=== PATIENT | male | born 1965 | race Caucasian/White ===

== ENCOUNTER 2019-09-23 11:07 | Inpatient (IN) | payer SELFPAY ==
[2019-09-23] VITALS (32 sets, daily range): BP systolic 82–181; BP diastolic 54–111; PULSE 64–114; RESP 12–23; O2SAT 87–100; BMI 44.8
--- NOTE | 2019-09-23 11:08 | ED_ITS ---
Entered by Nola Garcia, acting as scribe for Aryan Camacho DO HPI - Altered Mental Status General: Chief Complaint: Altered Mental Status Stated Complaint: unresponsive Time Seen by Provider: 09/23/19 11:08 Source: EMS and RN notes reviewed Mode of arrival: EMS Limitations: altered mental status History of Present Illness: HPI narrative: 54 yo male presents to ED with an altered mental status. Per EMS report, the patient was found in alley leaning up against a car and holding a Dorsey fontenot in his L hand, shivering uncontrollably with divorce papers in his other hand. After EMS placed the patient in the ambulance he became unresponsive. The patient is not responding to verbal commands nor sternal rub; his eyes are reactive. Intubated at 1110. MD complaint: altered mental status and decreased responsiveness Onset (ago): hour(s) (today) Timing confirmed by: other (EMS) Severity: severe Consistency of symptoms: Constant Context: unknown Associated symptoms: Reports other (unresponsive) Review of Systems General: Reports: ROS unobtainable due to endotracheal tube, ROS unobtainable due to medical condition and ROS unobtainable due to mental status [facility] ED PFSH: Social History Smoking and tobacco status: unknown if ever smoked Physical Exam Narrative: EXAM NARRATIVE: Patient is unresponsive. EMS reports he was found by police leaning up against the car in an alley. There is no evidence of trauma. Patient is either unable or unwilling to speak and does not appear to be awake or alert. Const: EXAM LIMITATIONS: altered mental status NUTRITIONAL APPEARANCE: cachectic ORIENTATION/CONSCIOUSNESS: Yes obtunded Neck/C-Spine: COMMON NORMALS: no JVD Resp: COMMON NORMALS: normal respiratory effort EFFORT & INSPECTION: Yes decreased respiratory effort Cardio: COMMON NORMALS: no JVD and regular rate RATE: regular rate GI: COMMON NORMALS: normal to inspection, nondistended, normoactive bowel sounds Extremity: COMMON NORMALS: normal to inspection and normal capillary refill Neuro: ADAMS COMA SCALE: document GCS findings Skin: COMMON NORMALS: no rashes or lesions noted, no wounds and no jaundice GENERAL SKIN EXAM: no rashes or lesions noted Procedures Lumbar Puncture Time Out Performed: No Patient Position: left lateral decubitus Skin Prep: Povidone-Iodine 1% Spinal Needle Gauge: 20G Interspace Used: L4-L5 Fluid Initially Obtained: clear Complications: none Course Vital Signs: Vital signs: Vital Signs Pulse Rate 67 09/23/19 14:00 Respiratory Rate 16 09/23/19 14:45 Blood Pressure 118/81 09/23/19 14:00 Pulse Oximetry 94 09/23/19 14:00 MDM - Altered Mental Status Lab Data: Labs: Lab Results 09/23/19 09/23/19 09/23/19 Range/Units 11:20 11:20 11:20 WBC 7.7 (4.0-10.0) 10^3/ uL RBC 4.74 (4.1-5.3) 10^6/u L Hgb 15.4 (11.7-16.6) g/dL Hct 45.1 (42.0-52.0) % MCV 95.1 H (80-94) fL MCH 32.5 (28.0-34.0) pg MCHC 34.1 (30.0-36.0) g/dL RDW 12.8 (12.1-15.1) % Plt Count 191 (130-400) 10^3/c mm MPV 9.8 (7.4-10.4) fL Neut % (Auto) 77.8 % Lymph % (Auto) 16.4 % Geary % (Auto) 4.7 % Eos % (Auto) 0.4 % Baso % (Auto) 0.4 % Neut # (Auto) 6.0 (1.8-7.7) 10^3/u L Lymph # (Auto) 1.3 (0.8-4.8) 10^3/u L Geary # (Auto) 0.4 (0.2-0.9) 10^3/u L Eos # (Auto) 0.0 (0.0-0.8) 10^3/u L Baso # (Auto) 0.0 (0.0-0.1) 10^3/u L Nucleated RBC % (a uto) 0 % Nucleated RBCs # 0.0 /100WBC PT (10.5-13.3) SECO NDS INR (0.8-1.2) APTT (23.9-36.7) SECO NDS Specimen Type Sample Site ABG pH (7.35-7.45) ABG pCO2 (35-45) mmHg ABG pO2 (80.0-100.0) mmH g ABG HCO3 (22-26) mmol/L ABG Base Excess (-2.0-2.0) mmol/ L Harrison Test Hematocrit (42-52) % Respiration Rate % O2 Delivery Device FiO2 % Tidal Volume PEEP cmH20 Ruling Machine Operator ID Sodium 134 L (136-145) mmol/L Potassium 4.3 (3.5-5.1) mmol/L Chloride 98 (98-107) mmol/L Carbon Dioxide 24 (22-29) mmol/L Anion Gap 16.3 (5-19) BUN 14 (6-20) mg/dL Creatinine 1.1 (0.7-1.2) mg/dL GFR Calculation 69.5 L (90-130) mL/min Glucose 127 H (65-115) mg/dL Calcium 10.1 (8.5-10.5) mg/dL Total Bilirubin 0.5 (0.15-1.2) mg/dL AST 28 (0-40) U/L ALT 36 (0-41) U/L Alkaline Phosphata se 86 (40-130) IU/L Troponin T Baselin e 9 (0-15) ng/mL Troponin T 120 Min shoshone[place]bann[place] (0-15) ng/mL Delta Troponin T (0-10) ABS# Total Protein 7.8 (6.6-8.7) g/dL Albumin 4.8 (3.5-5.2) g/dL Globulin 3.0 (1.3-4.6) g/dL TSH 0.38 (0.27-4.20) uIU/ mL Urine Color (Yellow) Urine Appearance (CLEAR) Urine pH (5-7) Ur Specific Gravit y (1.005-1.030) Urine Protein (Negative) Urine Glucose (UA) (Normal) Urine Ketones (Negative) Urine Occult Blood (Negative) Urine Nitrate (Negative) Urine Bilirubin (NEGATIVE) Urine Urobilinogen (Negative) mg/dL Ur Leukocyte Talia ase (Negative) Salicylates < 0.3 L (3-10) mg/dL Urine Opiates Scre en (Negative) ng/mL Acetaminophen < 5.0 L (10-30) ug/mL Ur Barbiturates Sc reen (Negative) ng/mL Ur Phencyclidine S crn (Negative) ng/mL Ur Amphetamines Sc reen (Negative) ng/mL U Benzodiazepines Scrn (Negative) ng/mL Urine Cocaine Scre en (Negative) ng/mL U Marijuana (THC) Screen (Negative) ng/mL Ethyl Alcohol < 10 (0-10) mg/dL 09/23/19 09/23/19 09/23/19 Range/Units 11:20 11:40 11:40 WBC (4.0-10.0) 10^3/ uL RBC (4.1-5.3) 10^6/u L Hgb (11.7-16.6) g/dL Hct (42.0-52.0) % MCV (80-94) fL MCH (28.0-34.0) pg MCHC (30.0-36.0) g/dL RDW (12.1-15.1) % Plt Count (130-400) 10^3/c mm MPV (7.4-10.4) fL Neut % (Auto) % Lymph % (Auto) % Geary % (Auto) % Eos % (Auto) % Baso % (Auto) % Neut # (Auto) (1.8-7.7) 10^3/u L Lymph # (Auto) (0.8-4.8) 10^3/u L Geary # (Auto) (0.2-0.9) 10^3/u L Eos # (Auto) (0.0-0.8) 10^3/u L Baso # (Auto) (0.0-0.1) 10^3/u L Nucleated RBC % (a uto) % Nucleated RBCs # /100WBC PT 14.00 H (10.5-13.3) SECO NDS INR 1.04 (0.8-1.2) APTT 28.4 (23.9-36.7) SECO NDS Specimen Type Sample Site ABG pH (7.35-7.45) ABG pCO2 (35-45) mmHg ABG pO2 (80.0-100.0) mmH g ABG HCO3 (22-26) mmol/L ABG Base Excess (-2.0-2.0) mmol/ L Harrison Test Hematocrit (42-52) % Respiration Rate % O2 Delivery Device FiO2 % Tidal Volume PEEP cmH20 Ruling Machine Operator ID Sodium (136-145) mmol/L Potassium (3.5-5.1) mmol/L Chloride (98-107) mmol/L Carbon Dioxide (22-29) mmol/L Anion Gap (5-19) BUN (6-20) mg/dL Creatinine (0.7-1.2) mg/dL GFR Calculation (90-130) mL/min Glucose (65-115) mg/dL Calcium (8.5-10.5) mg/dL Total Bilirubin (0.15-1.2) mg/dL AST (0-40) U/L ALT (0-41) U/L Alkaline Phosphata se (40-130) IU/L Troponin T Baselin e (0-15) ng/mL Troponin T 120 Min shosh[place] (0-15) ng/mL Delta Troponin T (0-10) ABS# Total Protein (6.6-8.7) g/dL Albumin (3.5-5.2) g/dL Globulin (1.3-4.6) g/dL TSH (0.27-4.20) uIU/ mL Urine Color Straw (Yellow) Urine Appearance Clear (CLEAR) Urine pH 5.0 (5-7) Ur Specific Gravit y 1.010 (1.005-1.030) Urine Protein Neg (Negative) Urine Glucose (UA) Norm (Normal) Urine Ketones Negative (Negative) Urine Occult Blood Neg (Negative) Urine Nitrate Negative (Negative) Urine Bilirubin Neg (NEGATIVE) Urine Urobilinogen Norm (Negative) mg/dL Ur Leukocyte Talia ase Negative (Negative) Salicylates (3-10) mg/dL Urine Opiates Scre en Negative (Negative) ng/mL Acetaminophen (10-30) ug/mL Ur Barbiturates Sc reen Negative (Negative) ng/mL Ur Phencyclidine S crn Negative (Negative) ng/mL Ur Amphetamines Sc reen Negative (Negative) ng/mL U Benzodiazepines Scrn Negative (Negative) ng/mL Urine Cocaine Scre en Negative (Negative) ng/mL U Marijuana (THC) Screen Positive H (Negative) ng/mL Ethyl Alcohol (0-10) mg/dL 09/23/19 09/23/19 Range/Units 12:49 13:15 WBC (4.0-10.0) 10^3/ uL RBC (4.1-5.3) 10^6/u L Hgb (11.7-16.6) g/dL Hct (42.0-52.0) % MCV (80-94) fL MCH (28.0-34.0) pg MCHC (30.0-36.0) g/dL RDW (12.1-15.1) % Plt Count (130-400) 10^3/c mm MPV (7.4-10.4) fL Neut % (Auto) % Lymph % (Auto) % Geary % (Auto) % Eos % (Auto) % Baso % (Auto) % Neut # (Auto) (1.8-7.7) 10^3/u L Lymph # (Auto) (0.8-4.8) 10^3/u L Geary # (Auto) (0.2-0.9) 10^3/u L Eos # (Auto) (0.0-0.8) 10^3/u L Baso # (Auto) (0.0-0.1) 10^3/u L Nucleated RBC % (a uto) % Nucleated RBCs # /100WBC PT (10.5-13.3) SECO NDS INR (0.8-1.2) APTT (23.9-36.7) SECO NDS Specimen Type Arterial Sample Site Brachial, left ABG pH 7.31 L (7.35-7.45) ABG pCO2 50.2 H (35-45) mmHg ABG pO2 55.4 L (80.0-100.0) mmH g ABG HCO3 25.2 (22-26) mmol/L ABG Base Excess -1.7 (-2.0-2.0) mmol/ L Harrison Test N/a Hematocrit 45.9 (42-52) % Respiration Rate 16.0 % O2 Delivery Device Vent FiO2 40.0 % Tidal Volume 0.5 PEEP 6.0 cmH20 Ruling Machine Operator ID amh Sodium (136-145) mmol/L Potassium (3.5-5.1) mmol/L Chloride (98-107) mmol/L Carbon Dioxide (22-29) mmol/L Anion Gap (5-19) BUN (6-20) mg/dL Creatinine (0.7-1.2) mg/dL GFR Calculation (90-130) mL/min Glucose (65-115) mg/dL Calcium (8.5-10.5) mg/dL Total Bilirubin (0.15-1.2) mg/dL AST (0-40) U/L ALT (0-41) U/L Alkaline Phosphata se (40-130) IU/L Troponin T Baselin e (0-15) ng/mL Troponin T 120 Min shosh[place] 50.70 H (0-15) ng/mL Delta Troponin T 41.70 H* (0-10) ABS# Total Protein (6.6-8.7) g/dL Albumin (3.5-5.2) g/dL Globulin (1.3-4.6) g/dL TSH (0.27-4.20) uIU/ mL Urine Color (Yellow) Urine Appearance (CLEAR) Urine pH (5-7) Ur Specific Gravit y (1.005-1.030) Urine Protein (Negative) Urine Glucose (UA) (Normal) Urine Ketones (Negative) Urine Occult Blood (Negative) Urine Nitrate (Negative) Urine Bilirubin (NEGATIVE) Urine Urobilinogen (Negative) mg/dL Ur Leukocyte Talia ase (Negative) Salicylates (3-10) mg/dL Urine Opiates Scre en (Negative) ng/mL Acetaminophen (10-30) ug/mL Ur Barbiturates Sc reen (Negative) ng/mL Ur Phencyclidine S crn (Negative) ng/mL Ur Amphetamines Sc reen (Negative) ng/mL U Benzodiazepines Scrn (Negative) ng/mL Urine Cocaine Scre en (Negative) ng/mL U Marijuana (THC) Screen (Negative) ng/mL Ethyl Alcohol (0-10) mg/dL Imaging Data^: CXR: Radiologist's impression: [address] [place] [address] XRay Report Signed Patient: Mynor Condon #: [id number] : 1965Acct#:[id number] Age/Sex: 54 / MADM Date: 09/23/19 Loc: ERRoom/Bed: Attending Dr: Ordering Provider/Ordering MD: Aryan Camacho DO Date of Service: 09/23/19 Procedure(s): XR chest 1V portable [id number] Accession Number(s): [id number] Report Number: [id number] WS: [id number] XR chest 1V portable [id number] REASON FOR EXAM: intubation FINDINGS: Endotracheal tube is seen 4.29 cm from the bifurcation of the felipe. The lung adrian remain adequately aerated. There is arteriosclerotic changes in the arch of the aorta. In the stomach there is noted a feeding tube in the upper aspects of the stomach. XR/XR chest 1V portable [id number] IMPRESSION: Endotracheal tube seen in the trachea 4.2 cm from the felipe. A feeding tube is seen in the upper aspects of the stomach. Dictated By:Rd Morales DO Signed By:Rd Morales DOSigned Date/Time:09/23/19 1129 DD/ CT Head: Radiologist's impression: [place] [address] CT Scan Report Signed Patient: Mynor Condon #: [id number] : 1965Acct#:[id number] Age/Sex: 54 / MADM Date: 09/23/19 Loc: ERRoom/Bed: Attending Dr: Ordering Provider/Ordering MD: Aryan Camacho DO Date of Service: 09/23/19 Procedure(s): CT head wo con* [id number] Accession Number(s): [id number] Report Number: [id number] WS: [id number] CT HEAD NONCONTRAST HISTORY: ams TECHNIQUE: Contiguous axial imaging performed through the brain in 2.5 mm imaging. Bone and soft tissue windows. Sagittal and coronal reformats reviewed. All CT scans at [facility] use at least one of these dose optimization techniques: automated exposure control; mA and/or kV adjustment per patient size (includes targeted exams where dose is matched to clinical indication); or iterative reconstruction. DLP: 1153.07 mGy.cm COMPARISON: 03/29/2011 No acute intracranial hemorrhage, midline shift or mass effect. Mild age-appropriate atrophy. Mild chronic microvascular ischemic disease. No acute infarct identified. Ventricles: Normal size with no hydrocephalus. No inferior displacement of cerebellar tonsils. Patient is intubated. Paranasal sinuses: Mucous retention cyst floor of the RIGHT maxillary sinus. Mild mucoperiosteal thickening in the ethmoid air cells. Mastoid air cells: Well pneumatized. Calvarium and scalp: Skull is intact with no soft tissue edema or swelling. Subcutaneous soft tissue tumor with fat attenuation measuring 15 x 6 mm over the LEFT lateral frontal region. 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 CT/CT head wo con* [id number] IMPRESSION: 1. No acute intracranial hemorrhage or edema. 2. Mild atrophy. 3. No cerebral edema. Dictated By:Chiara Couch DO Signed By:Chiara Couch DOSigned Date/Time:09/23/19 1249 DD/ Discharge Plan Discharge Prescriptions: No Action Unable to Assess RF: 0 Coding Level of Care Code ED Manager Hotel for Chg Fwd Exam Comprehensive The documentation recorded by the Jose washington Valerie R, accurately reflects the service I personally performed and the decisions made by Janice mello Donald P, DO Sep 23, 2019 11:07
[2019-09-23] MEDS: succinylcholine 20 mg/mL SDV 10mL 200 MG IVP (11:12)
--- NOTE | 2019-09-23 11:12 | XR_ITS ---
WS: [id number] XR chest 1V portable [id number] REASON FOR EXAM: intubation FINDINGS: Endotracheal tube is seen 4.29 cm from the bifurcation of the felipe. The lung adrian remain adequately aerated. There is arteriosclerotic changes in the arch of the aorta. In the stomach there is noted a feeding tube in the upper aspects of the stomach. XR/XR chest 1V portable [id number] IMPRESSION: Endotracheal tube seen in the trachea 4.2 cm from the felipe. A feeding tube is seen in the upper aspects of the stomach.
--- NOTE | 2019-09-23 11:12 | CT_ITS ---
WS: [id number] CT HEAD NONCONTRAST HISTORY: ams TECHNIQUE: Contiguous axial imaging performed through the brain in 2.5 mm imaging. Bone and soft tiss ue windows. Sagittal and coronal reformats reviewed. All CT scans at [facility] use at ast one of these dose optimization techniques: automated exposure control; mA and/or kV adjustment pe r patient size (includes targeted exams where dose is matched to clinical indication); or iterative r econstruction. DLP: 1153.07 mGy.cm COMPARISON: 03/29/2011 No acute intracranial hemorrhage, midline shift or mass effect. Mild age-appropriate atrophy. Mild chronic microvascular ischemic disease. No acute infarct identifie d. Ventricles: Normal size with no hydrocephalus. No inferior displacement of cerebellar tonsils. Patient is intubated. Paranasal sinuses: Mucous retention cyst floor of the RIGHT maxillary sinus. Mild mucoperiosteal thic kening in the ethmoid air cells. Mastoid air cells: Well pneumatized. Calvarium and scalp: Skull is intact with no soft tissue edema or swelling. Subcutaneous soft tissue tumor with fat attenuation measuring 15 x 6 mm over the LEFT lateral frontal region. 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 CT/CT head wo con* [id number] IMPRESSION: 1. No acute intracranial hemorrhage or edema. 2. Mild atrophy. 3. No cerebral edema.
[2019-09-23] MEDS: vecuronium 10 mg SDV IV ×2 (11:15→12:48)
[2019-09-23 11:28] LABS: Basophils % 0.4 %; Eosinophils % 0.4 %; Hematocrit 45.1 % (42.0-52.0); Hemoglobin 15.4 g/dL (11.7-16.6); Lymphocytes # 1.3 10^3/uL (0.8-4.8); Lymphocytes % 16.4 %; Mean Corpuscular HGB Conc 34.1 g/dL (30.0-36.0); Mean Corpuscular Hemoglobin 32.5 pg (28.0-34.0); Mean Corpuscular Volume 95.1 fL (80-94); Mean Platelet Volume 9.8 fL (7.4-10.4); Monocytes # 0.4 10^3/uL (0.2-0.9); Monocytes % 4.7 %; Neutrophils % 77.8 %; Nucleated Red Blood Cells % 0 %; Platelet Count 191 10^3/cmm (130-400); Red Blood Count 4.74 10^6/uL (4.1-5.3); Red Cell Distribution Width 12.8 % (12.1-15.1); White Blood Count 7.7 10^3/uL (4.0-10.0)
[2019-09-23 11:47] LABS: Troponin(5th) Baseline 9 ng/mL (0-15)
[2019-09-23 11:55] LABS: Alanine Aminotransferase 36 U/L (0-41); Albumin Level 4.8 g/dL (3.5-5.2); Alkaline Phosphatase 86 IU/L (40-130); Anion Gap 16.3 (5-19); Aspartate Amino Transferase 28 U/L (0-40); Blood Urea Nitrogen 14 mg/dL (6-20); Calcium 10.1 mg/dL (8.5-10.5); Carbon Dioxide 24 mmol/L (22-29); Chloride 98 mmol/L (98-107); Glomerular Filtration Rate 69.5 mL/min (90-130); Glucose 127 mg/dL (65-115); Potassium 4.3 mmol/L (3.5-5.1); Sodium 134 mmol/L (136-145); Thyroid Stimulating Hormone 0.38 uIU/mL (0.27-4.20); Total Bilirubin 0.5 mg/dL (0.15-1.2); Total Protein 7.8 g/dL (6.6-8.7)
[2019-09-23 11:56] LABS: Add Urine Microscopic? NO
[2019-09-23 11:58] LABS: Bilirubin Urine Neg (NEGATIVE); Blood Urine Neg (Negative); Glucose Urine UA Norm (Normal); Ketones Urine Negative (Negative); Leukocyte Esterase Urine Negative (Negative); Nitrate Urine Negative (Negative); Protein Urine Neg (Negative); Urine Appearance Clear (CLEAR); Urine Color Straw (Yellow); Urobilinogen Urine Norm (Negative)
[2019-09-23 12:03] LABS: Acetaminophen < 5.0 ug/mL (10-30); Alcohol Level < 10 mg/dL (0-10); Salicylate < 0.3 mg/dL (3-10)
[2019-09-23 12:11] LABS: Amphetamines Screen Urine Negative (Negative); Barbiturates Screen Urine Negative (Negative); Benzodiazepines Screen Urine Negative (Negative); Cocaine Screen Urine Negative (Negative); Opiate Screen Urine Negative (Negative); PCP Screen Urine Negative (Negative); THC Screen Urine Positive (Negative)
[2019-09-23] MEDS: propofol 1,000 MG/100 ML INJ 4.5 MG IV (12:27)
[2019-09-23 13:05] LABS: ABG PCO2 50.2 mmHg (35-45); ABG PH Result 7.31 (7.35-7.45); Arterial Blood Gas Hematocrit 45.9 % (42-52); Base Excess ABG -1.7 mmol/L (-2.0-2.0); Blood Gas Operator Identificat amh; Blood Gas Sample Site Brachial, left; Blood Gas Sample Type Arterial; Blood Gas Tidal Volume 0.5; HCO3 ABG 25.2 mmol/L (22-26); Oxygen Device VENT; PO2 ABG 55.4 mmHg (80.0-100.0)
--- NOTE | 2019-09-23 13:13 | PC.NURSE ---
Incorrect medication documentation due to this systems limitations: Weight entered incorrectly at time of triage. This was corrected after IV medications started.
--- NOTE | 2019-09-23 13:14 | ECG_ITS ---
Measurements Intervals [place] Rate: 63 P: 57 RI: 134 QRS: -12 QRSD: 116 T: 70 QT: 397 QTc: 406 SINUS RHYTHM INCOMPLETE RIGHT BUNDLE BRANCH BLOCK NONSPECIFIC ST ELEVATION Compared to ECG 11/30/2015 19:16:21 ST (T wave) deviation now present Electronically Signed On 09-23-2019 17:20:43 FINGERNAIL TECHNICIAN by Neema Hutton M.D. [email or web address]
--- NOTE | 2019-09-23 13:39 | PC.NURSE ---
Flor in lab called to report a 2 hour trop delta 41.7
[2019-09-23] MEDS: vecuronium 10 mg SDV IVP (14:30)
--- NOTE | 2019-09-23 14:40 | PC.NURSE ---
ETT advanced 1 cm per EMD verbal order
[2019-09-23 15:45] LABS: INR 1.04 (0.8-1.2); Partial Thromboplastin Time 28.4 SECONDS (23.9-36.7)
[2019-09-23 15:56] LABS: ABG PCO2 46.8 mmHg (35-45); ABG PH Result 7.37 (7.35-7.45); Alveolar-Arterial Oxygen Gradi 162.2 mmHg (5-10); Arterial Blood Gas Hematocrit 43.6 % (42-52); Base Excess ABG 0.9 mmol/L (-2.0-2.0); Blood Gas Operator Identificat amh; Blood Gas Sample Site Brachial, left; Blood Gas Sample Type Arterial; Blood Gas Tidal Volume 0.55; Carboxyhemoglobin 0.7 %THgb (0.4-20.1); HCO3 ABG 26.9 mmol/L (22-26); HGB O2 Sat 90.9 % (95-100); Ionized Calcium Level - ABG 1.2 mmol/L (1.1-1.4); Methemoglobin 0.3 % (0.4-1.5); Oxygen Device VENT; Oxygen Saturation ABG 91.9; PO2 ABG 63.2 mmHg (80.0-100.0); Potassium Level - ABG 3.9 mmol/L (3.5-5.0); Total Hemoglobin 14.2 g/dL (14-18)
--- NOTE | 2019-09-23 16:34 | PM.HP ---
Providers/Chief Complaint Primary Care Provider: Rolando Luis DO Chief Complaint: Resp Failure History of Present Illness Mynor Condon is a 54 year old male was brought in by EMS after found unresponsive on the street, reportedly leaning against a car, but would not awake when found by police. In ER he was intubated due to concern that he may not safely protect his airway. He is currently sedated, on mechanical ventilator. He reportedly was not waking up to sternal rub. There is no family with the patient, and attempt to reach anyone at the listed phone number was unsuccessful. In terms of belongings, patient was clothed, with finding of a bag of marijuana, with court paperwork in a folder pertaining to divorce proceedings, and a brass decorative fontenot. His urine drug screen was positive for marijuana. He is noted saturating initially 96% on room air, however, noted concern for airway protection. Initially hypertensive, blood pressure 163/96. Heart rate 60s-80s. CT of the head with no acute intracranial hemorrhage. Mild atrophy. No cerebral edema. He is noted to have mild respiratory acidosis, with hypoxia, hypercapnia, 7.31/50.2/55.4/25.2. Chest x-ray with adequate aeration of lung adrian. Nonspecific ST and T wave changes on EKG. Troponin initially normal, with mild abnormality subsequently up to 50.7. TSH is low-normal. Review of Systems Narrative: Patient is unable to provide review of systems. Could not reach family on the listed phone number. Medications/Allergies Home Medications Medication Instructions Recorded Confirmed Last Taken Type Unable to Assess 09/23/19 09/23/19 Unknown History Allergies Allergy/AdvReac Type Severity Reaction Status Date / Time Unable to Assess Allergy Unverified 09/23/19 12:52 Additional Medication Information Additional Medication Information: Medications and allergies at this time unknown. No prior allergies listed in the chart. PFSH Acute PFSH: Medical History Chronic back pain HLD (hyperlipidemia) HTN (hypertension) IBS (irritable bowel syndrome) Sciatica Smoking addiction Urine retention Family History (Updated 09/23/19 @ 16:52 by Caden Qiu MD) Other Alcoholism Social History Smoking and tobacco status: unknown if ever smoked Supplemental [facility] Information: Could only obtain old past medical history from his previous PCP Dr. Luis from a visit in 2017. Current history is unknown. Surgical history is unknown. Reportedly has family history of alcoholism. Previously a smoker, current status unknown. Vitals/I&O/Wt Last Vital Signs Pulse 67 09/23/19 14:00 Resp 16 09/23/19 14:45 BP 118/81 09/23/19 14:00 Pulse Ox 94 09/23/19 14:00 09/23/19 09/23/19 09/23/19 06:59 14:59 22:59 Intake Total 55.35 / 55.35 Balance 55.35 / 55.35 Weight last 48 hrs Weight 68.039 kg Weight 150 kg Physical Exam Const: COMMON NORMALS: no apparent distress GENERAL APPEARANCE: limp and patient mechanically ventilated; not cooperative, not diaphoretic, not grossly edematous and no odor of alcohol detected ORIENTATION/CONSCIOUSNESS: Yes obtunded OTHER: Intubated, sedated. HENMT: COMMON NORMALS: oropharynx normal Eye: OTHER: Symmetric pupils. No gaze deviation. Neck/C-Spine: COMMON NORMALS: no JVD Resp: COMMON NORMALS: clear to auscultation bilaterally AUSCULTATION: clear to auscultation bilaterally OTHER: Mechanically ventilated. Sedated. Occasional crackle audible, otherwise cannot detect gross adventitious sounds. Cardio: COMMON NORMALS: no JVD, regular rhythm, S1 normal heart sound, S2 normal heart sound and no murmurs RHYTHM: regular rhythm HEART SOUNDS: S1 normal and S2 normal OTHER: Capillary refill not prolonged. GI: COMMON NORMALS: normal to inspection, nondistended, normoactive bowel sounds, soft to palpation and non-tender PALPATION: Yes soft Extremity: COMMON NORMALS: no joint enlargement and no pedal edema Neuro: SENSORIUM/ORIENTATION: Yes stuporous OTHER: No seizure-like activity. No rigidity or clonus. Unable to assess cranial nerves, although does not appear to have facial droop grossly. Cannot assess sensation or power during my examination, although reported moving all extremities earlier sometime after intubation. Psych: OTHER: To obtain currently. Skin: COMMON NORMALS: no rashes or lesions noted GENERAL SKIN EXAM: no rashes or lesions noted Data : 09/23/19 11:20 02/18/20 11:20 A&P Assessment and plan (1) Acute encephalopathy: Of unknown etiology. Found alone, unresponsive in an alley, reportedly propped up against a car. Not waking up to sternal rub in ER. Intubated. History unknown. Cannot reach family. CT of the head without acute abnormality noted. I could not assess his neurological condition, however, reportedly has been moving all extremities as noted by ER physician and his RN. Currently undergoing stat EEG to rule out ongoing subclinical seizure, although otherwise no overt seizure-like activity. 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 Marijuana was found with him, and tested positive on urine drug screen. No other drugs noted in the urine. Will request for extended urine drug panel. Current medications are unknown. Cannot see anything in external med history. He has not seen his prior PCP since 2017 here per discussion with Dr. Luis. At that time had recurrent visits due to back pain with request for opioids. It is unknown whether he follows with a pain clinic. Opiates negative in the urine. May have been taking baclofen several years ago, unclear if still on it. He has mild respiratory acidosis, suspected secondary to obtundation, with also hypoxia, although chest x-ray without pneumonia, or other obvious abnormality. He reportedly was a smoker back in 2017, currently unknown. Cannot hear wheezing on lung exam, and air entry appears decent with occasional crackle. Discussed ABG results with respiratory therapy, and on full printout carboxyhemoglobin is 0.9% UA is clean. Electrolytes otherwise normal with very mild hyponatremia of 134. TSH is low normal at 0.38. There is no edema. Troponin with positive delta, low normal initially. Blood pressure initially somewhat elevated, suspect troponin ovation secondary to mismatch in demand supply due to his hypoxia, respiratory acidosis. Mild acute respiratory stenosis most likely secondary obtundation. With his belongings he had court paperwork regarding divorce proceedings and a brass decorative fontenot. Not sure if this is some sort of sentimental object, and perhaps with the worse paperwork may be dealing with depression, possibly overdose of medication. Carbon oxide poisoning considered initially, although carboxyhemoglobin is not elevated. He was reportedly found outside, and so suspicion at this time would be low. Will assess EEG for possible occult seizure. Provide respiratory support due to respiratory acidosis and monitor for any changes in neurological condition. Reassess mental status in the morning. MRI may be beneficial depending on his clinical course once he is able to undergo the study. Status: Acute Code(s): G93.40 - Encephalopathy, unspecified (2) Troponin level elevated: With normal initial troponin, but with a rise up to 50.7, with positive delta. Suspect this is mismatch and supply and demand secondary to his hypoxic respiratory failure. He does have risk factors for coronary disease. EKG not suggestive of acute ischemia. QT without prolongation. We will request for aspirin, start on heparin drip for now as cannot rule out non-STEMI. Will add beta-juana, statin. Request assessment by TTE. Status: Acute Code(s): R79.89 - Other specified abnormal findings of blood chemistry (3) Acute respiratory acidosis: Suspected secondary to obtundation, although he may have history of COPD which may have possible central carbon dioxide retention. He has a history of smoking. Intubated in ER. Monitor respiratory condition. Reassess ABG in the morning. Status: Acute Code(s): E87.2 - Acidosis (4) Acute respiratory failure with hypoxia: Suspect this is secondary to hypoventilation with obtundation, although also he may have COPD. Continue respiratory support with mechanical ventilation. Reassess chest x-ray, ABG, mental status in the morning. At this time PE cannot entirely be ruled out, although he is started on anticoagulation due to concern for possible non-STEMI as above. He is not fluid overloaded. Status: Acute Code(s): J96.01 - Acute respiratory failure with hypoxia Attestations Medical Necessity Statement*: Admission of over 2 midnights cannot be required versus management of acute encephalopathy. Coding Level of Care Code Acute Production Material Coordinator for [facility] Fwd Exam Comprehensive Diagnoses Acute encephalopathy G93.40 Troponin level elevated R79.89 Acute respiratory acidosis E87.2 Acute respiratory failure with hypoxia J96.01
[2019-09-23 16:40] LABS: Mononuclear WBC CSF % 0 % (50-90); Polynuclear Cells ,CSF # 0.001 10^3/uL (0-10); Polynuclear WBC CSF % 100 % (0-10); Red Blood Cell CSF 0 10^3/uL (0-0); White Blood Cell CSF 1 /uL (0-5)
[2019-09-23 16:41] LABS: Appearance CSF CLEAR (CLEAR)
[2019-09-23 16:42] LABS: Color CSF COLORLESS (COLORLESS)
[2019-09-23 16:52] LABS: Glucose CSF 68 mg/dL (40-70); Total Protein CSF 59 mg/dL (15-45)
[2019-09-23 17:09] LABS: Pathology Referral Yes
--- NOTE | 2019-09-23 17:14 | ECG_ITS ---
Measurements Intervals [place] Rate: 68 P: 78 MD: 149 QRS: -17 QRSD: 116 T: 66 QT: 394 QTc: 421 SINUS RHYTHM INCOMPLETE RIGHT BUNDLE BRANCH BLOCK Compared to ECG 11/30/2015 19:16:21 No significant changes Electronically Signed On 09-23-2019 17:11:40 CERTIFIED LOW VISION THERAPIST by Neema Hutton M.D. [email or web address]
--- NOTE | 2019-09-23 17:23 | PC.NURSE ---
Reviewed assessment and agree with it.
[2019-09-23 17:41] LABS: Lactic Sepsis W/Reflex 1.2 mmol/L (0.5-2.2)
[2019-09-23 17:48] LABS: Troponin 5 6HR 165.3 ng/mL (0-15); Troponin 5 6HR Delta 156.3 ng/L (0-12)
[2019-09-23 18:03] LABS: HIV 1 & 2 Antibody Non-Reactive (Non-Reactiv); HIV 1 & 2 Antigen Non-Reactive (Non-Reactiv)
[2019-09-23] MEDS: HYDROmorphone 1 mg/mL INJ 1 mL IVP (18:10)
[2019-09-23] MEDS: aspirin 300 mg Supp PR (18:11)
--- NOTE | 2019-09-23 18:18 | PM.PROC ---
 Procedure Note: Date of procedure: 09/23/19 Pre-procedure diagnosis: Altered Mental Status Post-procedure diagnosis: same Procedure: Electroencephalogram Other Information: History: Altered mental status. Technique: Stat digital EEG obtained with standard referental montages reformatted for optimal review. Description: There is no well formed background. The recording consists of primarily low amplitude theta activity. There is some admixed frontal beta. No focal, lateralized, or epileptiform abnormalities are seen. Photic stimulation and hyperventilation were not performed. Interpretation: Minimally abnormal EEG related to lack of background rhythm. This is consistent with mild generalized slowing. The described frontal beta activity is consistent with sedative medication. 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
[2019-09-23 20:15] LABS: Platelet Count 143 10^3/cmm (130-400)
[2019-09-23 20:35] LABS: Ammonia 59 umol/L (16-60)
[2019-09-23] MEDS: propofol 1,000 MG/100 ML INJ 45 MG IV (20:39)
[2019-09-23] MEDS: propofol 1,000 MG/100 ML INJ 49.5 MG IV (23:50)
[2019-09-24] VITALS (40 sets, daily range): BP systolic 64–149; BP diastolic 42–95; PULSE 82–111; RESP 8–21; TEMP 37.1–38; O2SAT 91–96
[2019-09-24] MEDS: propofol 1,000 MG/100 ML INJ 54 MG IV (02:46)
[2019-09-24 04:42] LABS: ABG PCO2 40.2 mmHg (35-45); ABG PH Result 7.42 (7.35-7.45); Arterial Blood Gas Hematocrit 41.5 % (42-52); Base Excess ABG 1.2 mmol/L (-2.0-2.0); Blood Gas Sample Site Brachial, right; Blood Gas Sample Type Arterial; Blood Gas Tidal Volume 0.55; HCO3 ABG 25.8 mmol/L (22-26); Oxygen Device VENT; PO2 ABG 70.2 mmHg (80.0-100.0)
[2019-09-24 05:06] LABS: Basophils % 0.2 %; Eosinophils % 0.4 %; Hematocrit 37.6 % (42.0-52.0); Hemoglobin 12.8 g/dL (11.7-16.6); Lymphocytes # 0.8 10^3/uL (0.8-4.8); Lymphocytes % 7.7 %; Mean Corpuscular Hemoglobin 31.5 pg (28.0-34.0); Mean Corpuscular Volume 92.6 fL (80-94); Mean Platelet Volume 10.4 fL (7.4-10.4); Monocytes # 0.6 10^3/uL (0.2-0.9); Monocytes % 5.1 %; Neutrophils # 9.4 10^3/uL (1.8-7.7); Neutrophils % 86.1 %; Nucleated Red Blood Cells % 0 %; Platelet Count 148 10^3/cmm (130-400); Red Blood Count 4.06 10^6/uL (4.1-5.3); Red Cell Distribution Width 13.1 % (12.1-15.1); White Blood Count 10.9 10^3/uL (4.0-10.0)
[2019-09-24 05:29] LABS: Alanine Aminotransferase 28 U/L (0-41); Albumin Level 3.9 g/dL (3.5-5.2); Alkaline Phosphatase 67 IU/L (40-130); Anion Gap 13.7 (5-19); Aspartate Amino Transferase 22 U/L (0-40); Blood Urea Nitrogen 13 mg/dL (6-20); Calcium 9.2 mg/dL (8.5-10.5); Carbon Dioxide 24 mmol/L (22-29); Chloride 104 mmol/L (98-107); Globulin 2.7 g/dL (1.3-4.6); Glomerular Filtration Rate 77.6 mL/min (90-130); Glucose 110 mg/dL (65-115); Potassium 3.7 mmol/L (3.5-5.1); Sodium 138 mmol/L (136-145); Total Bilirubin 0.4 mg/dL (0.15-1.2); Total Protein 6.6 g/dL (6.6-8.7)
--- NOTE | 2019-09-24 06:00 | XR_ITS ---
WS: [id number] XR chest 1V portable [id number] REASON FOR EXAM: Hypoxia FINDINGS: Endotracheal tube is again seen in good position. Slightly more elevated than previous exam . There is advanced chronic obstructive pulmonary disease findings. The feeding tube is seen in the region of the stomach. XR/XR chest 1V portable [id number] IMPRESSION: Chronic obstructive pulmonary disease. The endotracheal tube adequately positioned. The feeding tube noted in the stomach.
[2019-09-24] MEDS: propofol 1,000 MG/100 ML INJ 40.5 MG IV (07:18)
[2019-09-24] MEDS: metoprolol tartrate 25 mg Tablet PO (08:38)
[2019-09-24] MEDS: pantoprazole 40 mg SDV IVP (08:38)
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
[2019-09-24] MEDS: propofol 1,000 MG/100 ML INJ 27 MG IV (11:09)
--- NOTE | 2019-09-24 11:40 | PC.RESP ---
Pamphlet left at bedside for Pulmonary Rehab and Smoking Cessation.
--- NOTE | 2019-09-24 11:59 | PC.CHAP ---
Pastoral Care Encounter/Spiritual Assessment Type of Contact [] Declined lead machinist visit [] Patient/Family/Request visit [] Outpatient visit [] Follow-up visit [] Physician referral [] Code/Alert [x] Routine visit [] Staff referral [] Actively dying [x] Patient sleeping [] Family support [] [] Out of room [] Palliative care [] [] Receiving care in room [] Pre-surgical visit [] Trauma [] Long length of stay [x] ICU visit [] Other: Relational/Emotional Strength [] Patient feels connected with others/family/visitors/staff [] Distress [] Loneliness/isolation [] Abandonment Spirituality of Patient [] Person of Kristin [] Attends Temple of their Kristin [] Believes in Prayer [] Reads Bible or Buddhism materials [] There are Spiritual issues to be addressed Alarm Signal Operator Interventions [] Prayer [] Active listening [] Non-anxious presence [] Spiritual/emotional support [] Crisis/trauma care [] Spiritual counseling [] Bereavement support [] Provided bereavement packet [] Provided Bible/devotional materials [] Provided toy/stuffed animal, coloring book to patient or family member [] Provided Communion [] Anointing/[place] [] Salvation [x] Completed spiritual assessment [] Other: Impact on Illness or Injury [] Angry [] Fearful [] Anxious [] Often cries [] Exhaustion [] Unable to work [] Unable to attend gnosticism [] Unable to walk/stand [] Unable to read [] Unable to drive [] Unable to eat/drink [] Unable to sleep [] Unable to be with family [] Patient intubated [] Other: Summary Time spent with patient
[2019-09-24] MEDS: ipratropium-albuterol 3 mL Neb INHALATION ×2 (14:02→20:59)
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
[2019-09-24] MEDS: heparin 5,000 unit/mL INJ 1 mL IV (19:17)
[2019-09-24] MEDS: heparin drip 25,000 UNIT/500 ML PREMIX 20 UNIT IV (19:19)
--- NOTE | 2019-09-24 19:51 | USCV_ITS ---
Taurus Mynor Age: 54 Gender: M : 1965 Exam Date: 09/24/2019 06:44 Ordering Phys: Caden Qiu MD Technologist: Gerber Landeros Exam Location: [facility] [place] Indication: ABNORMAL TROPONIN BP: 89 / 60 HR: 90 Rhythm: Sinus Technical Quality: Very technically difficult study MEASUREMENTS (Male / Female) Normal Values 2D ECHO LA Diameter 4.3 cm M-MODE Aortic Annulus Diameter 4.0 cm LA Ao Ratio MM 1.1 DOPPLER AV Peak Velocity 129.0 cm/s LVOT Peak Velocity 91.0 cm/s MV Area PHT 5.0 cm squared Mitral E to A Ratio 0.9 MV E' Velocity 59.0 cm/s TR Peak Velocity 173.0 cm/s TR Peak Gradient 12.0 mmHg TV Peak E Velocity 76.0 cm/s Right Atrial Pressure 15.0 mmHg Pulmonary Artery Systolic Pressu 27.0 mmHg PV Peak Velocity 109.0 cm/s FINDINGS Left Ventricle Normal left ventricular cavity size. Normal left ventricular systolic function. It appeared to be mild septal bounce which could be secondary to interventricular conduction delay. Left ventricular ejection fraction is estimated at 55 %. Grade I/IV diastolic dysfunction (abnormal relaxation filling pattern), normal to mildly elevated filling pressures. Right Ventricle The right ventricle is normal in size and function. Right Atrium The right atrium is normal in size. Left Atrium The left atrium is normal in size. Mitral Valve Moderately thickened mitral valve. No mitral valve stenosis. No mitral valve regurgitation. Aortic Valve Mild aortic valve calcification. No aortic valve stenosis. No aortic valve regurgitation. Tricuspid Valve Structurally normal tricuspid valve without significant stenosis or regurgitation. Pulmonary artery systolic pressure is normal. Pulmonic Valve Structurally normal pulmonic valve without significant stenosis. There is no pulmonic regurgitation. Pericardium Normal pericardium without effusion. Aorta Normal ascending aorta dimension. CONCLUSIONS 1-Normal left ventricular cavity size. Normal left ventricular systolic function. It appeared to be mild septal bounce which could be secondary to interventricular conduction delay. Left ventricular ejection fraction is estimated at 55 %. Grade I/IV diastolic dysfunction (abnormal relaxation filling pattern), normal to mildly elevated filling pressures. 2-Moderately thickened mitral valve. No mitral valve stenosis. No mitral valve regurgitation. 3-No significant valve abnormalities. 4-There is no pericardial effusion. 5-Pulmonary artery systolic pressure is within normal limits. 6-There are no prior echocardiogram studies to compare. Rebecca Nathan MD (Electronically Signed) Final Date: 24 September 2019 20:17 S
[2019-09-24] MEDS: aspirin 81 mg EC Tablet PO (19:53)
--- NOTE | 2019-09-24 19:55 | PC.NURSE ---
Dr. Nathan at bedside with patient. 1:1 Sitter remains at bedside.
--- NOTE | 2019-09-24 22:28 | PM.CONSULT ---
Providers/Reason For Consult Consulting Physican/Specialty*: Cardiology Reason for Consult*: Abnormal cardiac markers Requesting Physcian: Caden Qiu Attending Physician: Caden Qiu Primary Care Provider: Rolando Luis DO History of Present Illness History of Present Illness Mynor Condon is a 54 year old male Past medical history significant for hypertension, family circumflex coronary disease, tobacco abuse and marijuana abuse denies regular alcohol intake or other drug abuse such as methamphetamine brought in by EMS for altered mental status changes he was intubated for respiratory distress and extubated today he was found to have abnormal cardiac markers and reported that 164 Trop T. I had a chance to interview the patient. He denies any chest pain shortness of breath PND orthopnea. According to the patient he exercises regularly which is questionable. According to him he is very fit and can even stressed out the stress test. He denies any flulike symptoms are viral illness in the near future. Echocardiogram is pending. Twelve-lead EKG is not suggestive of ischemia. Review of Systems General: Reports: ROS unobtainable due to endotracheal tube, ROS unobtainable due to medical condition and ROS unobtainable due to mental status Narrative: Review of Systems Constitutional: Complains of: Fatigue Eyes: Complains of: No eye symptoms ENT/Mouth: Complains of: No ENTM symptoms Cardiovascular: Complains of: No cardiac symptoms Respiratory: Complains of: No respiratory symptoms GI: Complains of: No GI symptoms Neuro: Complains of: No neuro symptoms Musculoskeletal: Complains of: No musculoskeletal symptoms Skin: Complains of: No skin symptoms Hematologic/Lymphatic: Complains of: No hematologic/lymphatic symptoms Endocrine: Complains of: No endocrine symptoms : Complains of: No symptoms Psych: Denies: Depression, Suicide ideation Meds/Allergies Home Medications and Allergies Home Medications Medication Instructions Recorded Confirmed Type No Known Home Medications 09/24/19 09/24/19 History Allergies Allergy/AdvReac Type Severity Reaction Status Date / Time tramadol [From Ultram] Allergy Unknown Verified 09/24/19 16:02 Current Medications Current Medications Generic Name Dose Route Start Last Admin Trade Name Freq PRN Reason Stop Dose Admin Albuterol/Ipratropium 3 ml 09/24/19 15:00 09/24/19 20:59 Duoneb INHALATION 3 ml Q6H.RESPIRATORY ALVARADO Administration Aspirin 81 mg 09/24/19 19:10 09/24/19 19:53 Aspirin Ec PO 81 mg DAILY ALVARADO Administration Atorvastatin Calcium 40 mg 09/23/19 21:00 09/24/19 21:54 Lipitor PO Not Given BEDTIME ALVARADO Heparin Sodium (Beef Lung) 0 unit 09/23/19 19:51 09/24/19 19:17 Heparin IV 3,600 unit PRN PRN Administration Heparin weight-base protocol Protocol Propofol 1,000 mg in 100 mls @ 0 mls/hr 09/23/19 12:00 09/24/19 12:30 Diprivan IV 15 mcg/kg/min .Q0M ALVARADO 13.5 mls/hr Titration Protocol Per Protocol Heparin Sodium/Sodium Chloride 25,000 unit in 500 mls @ 0 mls/hr 09/23/19 19:51 09/24/19 19:19 Heparin Drip IV 14.7 unit/kg/hr .Q0M ALVARADO 20 mls/hr Administration Protocol Per Protocol Fentanyl 1,000 mcg/ Sodium 100 mls @ 0 mls/hr 09/24/19 02:30 09/24/19 12:45 Chloride IV 0 mcg/hr .Q0M ALVARADO 0 mls/hr Titration Protocol Per Protocol Metoprolol Tartrate 25 mg 09/23/19 19:51 09/24/19 17:38 Lopressor PO Not Given BID ALVARADO Pantoprazole Sodium 40 mg 09/24/19 09:00 09/24/19 08:38 Protonix IVP 40 mg DAILY ALVARADO Administration Additional Medication Information Medications and allergies at this time unknown. No prior allergies listed in the chart. PFSH Acute PFSH: Medical History (Updated 09/24/19 @ 22:38 by Rebecca Nathan MD) Chronic back pain HLD (hyperlipidemia) HTN (hypertension) IBS (irritable bowel syndrome) Sciatica Smoking addiction Urine retention Family History Other Alcoholism Social History Smoking and tobacco status: unknown if ever smoked Supplemental PFSH Information: Could only obtain old past medical history from his previous PCP Dr. Luis from a visit in 2017. Current history is unknown. Surgical history is unknown. Reportedly has family history of alcoholism. Previously a smoker, current status unknown. Vitals/I&O/Wt Last Vital Signs Temp 98.8 F 09/24/19 20:00 Pulse 89 09/24/19 21:00 Resp 16 09/24/19 21:00 BP 121/77 09/24/19 20:00 Pulse Ox 95 09/24/19 21:00 09/24/19 09/24/19 09/24/19 06:59 14:59 22:59 Intake Total 208.000 / 408.000 199.367 / 199.367 Output Total 1200 / 1200 500 / 500 Balance -992.000 / -792.000 199.367 / 199.367 -500 / -300.633 Weight last 48 hrs Weight 150 lb Weight 330 lb 11.094 oz Physical Exam Urinary Catheter Management^: Sanchez: Cath Placed During This Visit: yes Urethral Indwelling: Yes Reason for Continuing Indwelling Catheter: Accurate Measurement of Urinary Output in Critically Ill Patients Urinary Catheter Date of Insertion: 09/23/19 Urinary Catheter Time of Insertion: 16:00 Data Micro: Micro: Microbiology 09/23/19 16:17 Gram Stain - Final Cerebrospinal Flu id CSF Culture - Prel iminary A&P Assessment and plan (1) Troponin level elevated: Could be multi-factorial including hyper or hypotensive episodes, drug toxicity, underlying coronary artery disease. Currently stable denies any symptoms. I do not think that he had an acute coronary event. We will look into echocardiogram for any wall motion abnormality ER LV dysfunction. Since patient has moderate to high risk factor for obstructive coronary disease before discharge stress test for risk stratification is warranted. He is on metoprolol which we will continue. We may can anticoagulate him with Lovenox for next 3 days. Further plan will be advised as per progress of the patient . Continue aspirin statin and beta juana. Status: Acute Code(s): R79.89 - Other specified abnormal findings of blood chemistry Consult Attestations Medical Necessity Statement: Patient may requires continuation hospitalization for above defined symptoms Coding Level of Care Code New Pt Acute Pattern Chain Builder for Chg Fwd Patient Type New History Expanded Problem Focused Exam Expanded Problem Focused Medical Decision Making Moderate Complexity Diagnoses Troponin level elevated R79.89
[2019-09-25] VITALS (13 sets, daily range): BP systolic 89–115; BP diastolic 55–69; PULSE 63–88; RESP 13–18; TEMP 36.7–36.9; O2SAT 92–97
[2019-09-25 02:16] LABS: Partial Thromboplastin Time 58.2 SECONDS (23.9-36.7)
[2019-09-25 02:19] LABS: Alanine Aminotransferase 23 U/L (0-41); Albumin Level 3.1 g/dL (3.5-5.2); Anion Gap 12.6 (5-19); Aspartate Amino Transferase 24 U/L (0-40); Blood Urea Nitrogen 9 mg/dL (6-20); Carbon Dioxide 25 mmol/L (22-29); Chloride 102 mmol/L (98-107); Glomerular Filtration Rate 100.4 mL/min (90-130); Glucose 126 mg/dL (65-115); Potassium 3.6 mmol/L (3.5-5.1); Sodium 136 mmol/L (136-145); Total Bilirubin 0.6 mg/dL (0.15-1.2); Total Protein 6.1 g/dL (6.6-8.7)
[2019-09-25 02:20] LABS: Alkaline Phosphatase 64 IU/L (40-130)
[2019-09-25 02:22] LABS: Basophils % 0.2 %; Eosinophils # 0.1 10^3/uL (0.0-0.8); Eosinophils % 0.9 %; Hematocrit 34.7 % (42.0-52.0); Hemoglobin 11.8 g/dL (11.7-16.6); Lymphocytes # 1.5 10^3/uL (0.8-4.8); Lymphocytes % 15.8 %; Mean Corpuscular Hemoglobin 31.7 pg (28.0-34.0); Mean Corpuscular Volume 93.3 fL (80-94); Mean Platelet Volume 10.7 fL (7.4-10.4); Monocytes # 0.5 10^3/uL (0.2-0.9); Monocytes % 5.1 %; Neutrophils # 7.5 10^3/uL (1.8-7.7); Neutrophils % 77.8 %; Nucleated Red Blood Cells % 0 %; Platelet Count 127 10^3/cmm (130-400); Red Blood Count 3.72 10^6/uL (4.1-5.3); White Blood Count 9.6 10^3/uL (4.0-10.0)
[2019-09-25 07:57] LABS: Partial Thromboplastin Time 59.4 SECONDS (23.9-36.7)
[2019-09-25] MEDS: ipratropium-albuterol 3 mL Neb INHALATION ×3 (08:20→20:51)
[2019-09-25] MEDS: aspirin 81 mg EC Tablet PO (09:07)
[2019-09-25] MEDS: metoprolol tartrate 25 mg Tablet PO (09:07)
[2019-09-25] MEDS: pantoprazole 40 mg SDV IVP (09:07)
[2019-09-25] MEDS: enoxaparin 40 mg/0.4 mL Syringe SUBCUT (10:18)
[2019-09-25] MEDS: clopidogrel 300 mg Tablet PO (10:18)
--- NOTE | 2019-09-25 10:49 | PC.NURSE ---
Patient Transfer Patient transferred to NPU with security and nurse. 2 IV's removed. whittington cath removed. See documentation. Report called to Sandra MILLER. No further questions or concerns at this time.
--- NOTE | 2019-09-25 12:36 | PM.PN ---
Subjective Subjective: Interval history: Denies any chest pain. Patient is not interested in further pursuance. He is not interested in stress test or angiogram. I would like to be treated medically only. Medications: Reviewed: Yes Medication Review Details: Medications and allergies at this time unknown. No prior allergies listed in the chart. Vitals/I&O/Wt Last Vital Signs Temp 98.4 F 09/25/19 08:00 Pulse 88 09/25/19 08:24 Resp 16 09/25/19 08:20 BP 115/67 09/25/19 08:00 Pulse Ox 96 09/25/19 08:20 09/24/19 09/25/19 09/25/19 22:59 06:59 14:59 Intake Total 100 / 299.367 500 / 799.367 773 / 773 Output Total 500 / 500 1200 / 1700 Balance -400 / -200.633 -700 / -900.633 773 / 773 Weight last 48 hrs Weight 168 lb 6.4 oz Weight 150 lb Physical Exam Narrative: EXAM NARRATIVE: GENERAL: Patient is alert, awake and oriented x3. NECK: No jugular vein distension. HEENT: No cyanosis. No icterus. No pallor. HEART: Regular S1 and S2. No murmur, rub or gallop. LUNGS: Clear to auscultate bilaterally. ABDOMEN: Soft, nontender and nondistended. Positive bowel sounds. No guarding, rebound or tenderness. CENTRAL NERVOUS SYSTEM: Grossly nonfocal. EXTREMITIES: Lower extremities without edema bilaterally. Pulses palpable in the lower extremities, both dorsalis pedis and posterior tibial. Urinary Catheter Management^: Sanchez: Cath Placed During This Visit: yes, but has since been removed by the nurse Urethral Indwelling: Yes Reason for Continuing Indwelling Catheter: Decision to DC Catheter Urinary Catheter Date of Insertion: 09/23/19 Urinary Catheter Time of Insertion: 16:00 Date Urinary Catheter Removed: 09/25/19 Time Urinary Catheter Discontinued: 10:28 Data : 09/25/19 01:50 09/25/19 01:50 Micro: Microbiology 09/23/19 16:17 Gram Stain - Final Cerebrospinal Fluid CSF Culture - Preliminary A&P Assessment and plan (1) Troponin level elevated: He is not symptomatic. Denies any complain. He would not like to further pursue it with stress test or angiogram. We recommend continuing aspirin statin beta juana and Plavix and aspirin. We will follow-up on him in the clinic. Patient has been explained all risks benefits and alternative for the treatment. He would like to be treated conservatively. He understands clearly and not in denial. Status: Acute Code(s): R79.89 - Other specified abnormal findings of blood chemistry Attestations Medical Necessity Statement*: As per medicine Coding Level of Care Code Established Pt Acute Guest Request Runner for g Fwd Patient Type Established History Expanded Problem Focused Exam Expanded Problem Focused Medical Decision Making Moderate Complexity Diagnoses Troponin level elevated R79.89
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
[2019-09-25 16:55] LABS: HSV 1 DNA NOT DETECTED; HSV 2 DNA NOT DETECTED; HSV Source CEREBROSPINAL FLUID
--- NOTE | 2019-09-25 21:03 | PC.NURSE ---
2100 MEDS PT REFUSED 2100 MEDS.
[2019-09-26 06:00] VITALS: BP 121/72; PULSE 66; RESP 18; TEMP 36.9; O2SAT 95
[2019-09-26 07:33] LABS: Basophils % 0.3 %; Eosinophils # 0.2 10^3/uL (0.0-0.8); Eosinophils % 2.3 %; Hematocrit 39.1 % (42.0-52.0); Hemoglobin 13.1 g/dL (11.7-16.6); Lymphocytes # 0.8 10^3/uL (0.8-4.8); Lymphocytes % 11.1 %; Mean Corpuscular HGB Conc 33.5 g/dL (30.0-36.0); Mean Corpuscular Hemoglobin 31.9 pg (28.0-34.0); Mean Corpuscular Volume 95.1 fL (80-94); Mean Platelet Volume 10.5 fL (7.4-10.4); Monocytes # 0.3 10^3/uL (0.2-0.9); Monocytes % 4.6 %; Neutrophils # 5.8 10^3/uL (1.8-7.7); Neutrophils % 81.6 %; Nucleated Red Blood Cells % 0 %; Platelet Count 152 10^3/cmm (130-400); Red Blood Count 4.11 10^6/uL (4.1-5.3); Red Cell Distribution Width 13.3 % (12.1-15.1); White Blood Count 7.1 10^3/uL (4.0-10.0)
[2019-09-26 07:47] LABS: Alanine Aminotransferase 23 U/L (0-41); Albumin Level 3.7 g/dL (3.5-5.2); Alkaline Phosphatase 65 IU/L (40-130); Anion Gap 14.2 (5-19); Aspartate Amino Transferase 24 U/L (0-40); Blood Urea Nitrogen 9 mg/dL (6-20); Calcium 10.2 mg/dL (8.5-10.5); Carbon Dioxide 27 mmol/L (22-29); Chloride 103 mmol/L (98-107); Globulin 3.9 g/dL (1.3-4.6); Glomerular Filtration Rate 100.4 mL/min (90-130); Glucose 130 mg/dL (65-115); Potassium 4.2 mmol/L (3.5-5.1); Sodium 140 mmol/L (136-145); Total Bilirubin 0.5 mg/dL (0.15-1.2); Total Protein 7.6 g/dL (6.6-8.7)
[2019-09-26 09:23] VITALS: PULSE 74; RESP 18; O2SAT 98
[2019-09-26 10:19] LABS: Amphetamines Screen Urine Negative (Negative); Barbiturates Screen Urine Negative (Negative); Benzodiazepines Screen Urine Negative (Negative); Cocaine Screen Urine Negative (Negative); Methamphetamines Urine Screen Negative (Negative); Methylenedioxymethamphetamine Negative (Negative); Opiate Screen Urine Negative (Negative); Opiate Urine Negative (Negative); PCP Screen Urine Negative (Negative); THC Screen Urine Positive (Negative); Tricyclic Antidepressants UR Negative (Negative)
[2019-09-26 14:00] VITALS: BP 113/70; PULSE 77; RESP 18; TEMP 36.9; O2SAT 99
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
[2019-09-26 14:44] VITALS: BP 113/70; PULSE 77; RESP 18; TEMP 36.9; O2SAT 99
[2019-09-27 20:31] LABS: VDRL on CSF NON-REACTIVE
[2019-09-27 21:26] LABS: Lyme Disease AB (IGG),IBL NO BANDS DETECTED; Lyme Disease AB (IGM), IBL NO BANDS DETECTED
[2019-09-30 19:20] LABS: West Nile Virus AB (IGG) <1.30 index; West Nile Virus AB (IGM) <0.90 index
== END 2019-09-26 16:17 | disposition home or self-care (01) | DRG 208 ==
LOC: ER 13:24 → ICU 17:07 → NP 09-25 10:27
PROVIDERS: Admitting Provider Internal Medicine; Emergency Provider Family Medicine; Family Provider Internal Medicine; PCP Internal Medicine; Visit Provider Internal Medicine
DX: J96.01 Acute respiratory failure with hypoxia (principal); G93.40 Encephalopathy, unspecified; E87.2 Acidosis; J44.1 Chronic obstructive pulmonary disease with (acute) exacerbation; F05 Delirium due to known physiological condition; R79.89 Other specified abnormal findings of blood chemistry; Z88.8 Allergy status to other drugs, medicaments and biological substances; G89.29 Other chronic pain; M54.9 Dorsalgia, unspecified; Z87.891 Personal history of nicotine dependence
CPT/HCPCS: 12345; 36415; 36600; 51702; 62270; 70450; 71045; 80051; 80053; 80305; 80307; 80500; 81003; 82140; 82803; 82810; 82945; 83605; 83986; 84157; 84443; 84484; 85025; 85049; 85610; 85730; 86592; 86617; 86788; 86789; 87070; 87075; 87205; 87530; 87806; 89050; 93005; 93306; 94002; 94003; 94640; 94664; 94799; 96372; 96375; 99283; A4570; C9113; J0330; J1170; J1644; J1650; J2704; J3010; J3490

== ENCOUNTER 2021-02-16 11:32 | Emergency (ER) | payer SELFPAY ==
[2021-02-16 12:28] VITALS: BP 144/84; PULSE 73; RESP 16; TEMP 36.8; O2SAT 95; BMI 24.4
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
[2021-02-16 14:02] LABS: ABG PCO2 38.6 mmHg (35-45); ABG PH Result 7.44 (7.35-7.45); Alveolar-Arterial Oxygen Gradi 1.7 mmHg (5-10); Arterial Blood Gas Hematocrit 49.9 % (42-52); Base Excess ABG 2.3 mmol/L (-2.0-2.0); Blood Gas Allen Test Pos; Blood Gas Operator Identificat GD; Blood Gas Sample Site Radial, left; Blood Gas Sample Type Arterial; Carboxyhemoglobin 3.1 %THgb (0.4-20.1); HCO3 ABG 26.5 mmol/L (22-26); HGB O2 Sat 93.7 % (95-100); Ionized Calcium Level - ABG 1.2 mmol/L (1.1-1.4); Methemoglobin 0.7 % (0.4-1.5); Oxygen Device ROOM AIR; Oxygen Saturation ABG 97.3; Potassium Level - ABG 3.7 mmol/L (3.5-5.0); Total Hemoglobin 16.3 g/dL (14-18)
[2021-02-16 14:34] VITALS: BP 146/73; PULSE 72; RESP 18; O2SAT 97
== END 2021-02-16 14:35 | disposition home or self-care (01) ==
PROVIDERS: Emergency Provider Physician Assistant; PCP Internal Medicine
DX: Z03.89 Encounter for observation for other suspected diseases and conditions ruled out (principal); Z79.82 Long term (current) use of aspirin; Z79.02 Long term (current) use of antithrombotics/antiplatelets; E78.5 Hyperlipidemia, unspecified; I10 Essential (primary) hypertension; F17.210 Nicotine dependence, cigarettes, uncomplicated
CPT/HCPCS: 36600; 80051; 82330; 82805; 99282

== ENCOUNTER 2022-04-26 12:18 | Inpatient (IN) | payer SELFPAY ==
[2022-04-26] VITALS (40 sets, daily range): BP systolic 117–188; BP diastolic 74–114; PULSE 44–88; RESP 12–21; TEMP 36.3–36.6; O2SAT 93–99; BMI 25.0
--- NOTE | 2022-04-26 12:30 | XRR_ITS ---
PROCEDURE INFORMATION: Exam: XR Chest Exam date and time: 04/26/2022 12:39 PM Age: 56 years old Clinical indication: Pain; Angina pectoris; Additional info: Chest pain TECHNIQUE: Imaging protocol: Radiologic exam of the chest. Views: 1 view. COMPARISON: 1. CR XR chest 1V portable [id number] 09/24/2019 5:35 AM 2. CR XR chest 1V portable [id number] 09/23/2019 11:31 AM FINDINGS: Lungs: Unremarkable. No consolidation. There is a tiny benign granuloma in the left costophrenic angle. A nipple shadow projects in the left base which can also be seen old examination. Pleural spaces: Unremarkable. No pleural effusion. No pneumothorax. Heart/Mediastinum: Unremarkable. No cardiomegaly. Bones/joints: Unremarkable. XR/XR chest 1V portable [id number] IMPRESSION: No acute findings.
--- NOTE | 2022-04-26 12:31 | W.ED.CHESTPA ---
HPI - Chest Pain General: Chief Complaint: Chest Pain Stated Complaint: chest discomfort Time Seen by Provider: 04/26/22 12:20 Source: patient Mode of arrival: EMS Limitations: no limitations History of Present Illness: 56-year-old male presents emergency room with complaint of chest pain. States he woke with chest tightness this morning around 7 AM and persisted throughout the day he had some relief with nitro he was given nitro and aspirin by EMS. She was severely hypertensive when he first was encountered by EMS with a systolic in the 190s. He still has some mild discomfort on arrival here. His initial EKG is unremarkable. The pain radiates into the back now to the neck of the arm she has no shortness of breath or diaphoresis with it has not previously had episodes like this and he has no known history of coronary disease. He does smoke drinks heavily and has a history of hypertension hyperlipidemia MD complaint: chest pain Onset (ago): hour(s) Timing of current episode: episodic Onset: during rest Pain location: left chest Pain radiation: back Severity: moderate Quality: aching and heaviness Relieving factors: nitroglycerin Exacerbating factors: nothing Associated symptoms: Reports fever(s); Deny abdominal pain, diaphoresis, dyspnea, leg edema, nausea, palpitations, sense of impending doom, syncope or vomiting Treatment prior to arrival: nitroglycerin Review of Systems Const: Reports: fever(s); Denies: chills, fatigue, malaise or diaphoresis ENMT: Denies: throat pain, ear or mastoid pain, nasal discharge or nasal congestion Card: Denies: chest pain, palpitations, edema, syncope, dyspnea on exertion or orthopnea Resp: Denies: dyspnea, productive cough or non-productive cough GI: Denies: abdominal pain, nausea, vomiting, hematemesis, coffee ground emesis, diarrhea, constipation, bloating, hematochezia or melena : Denies: flank pain, dysuria, urinary frequency or urinary urgency Skin/Breast: Denies: rash or pruritus [facility] PFSH: Medical History (Updated 04/26/22 @ 15:31 by Louis Iniguez DO) Chronic back pain HLD (hyperlipidemia) HTN (hypertension) IBS (irritable bowel syndrome) Sciatica Smoking addiction Urine retention Family History Other Alcoholism Social History Smoking and tobacco status: current every day smoker cigarettes Packs smoked per day: 0.5 Alcohol intake: current Alcohol intake frequency: 3 or more drinks per day Physical Exam Const: GENERAL APPEARANCE: cooperative and comfortable ORIENTATION/CONSCIOUSNESS: Yes awake, Yes oriented to person, Yes oriented to place and Yes oriented to time HENMT: COMMON NORMALS: normocephalic, atraumatic, hearing grossly normal bilaterally, external ears normal, EAC's normal, TM's normal bilaterally, Normal nasal mucous membranes and turbinates present, moist oral mucous membranes and oropharynx normal HEAD & SCALP: normocephalic and atraumatic NOSE: Normal nasal mucous membranes and turbinates present EXTERNAL EAR: Yes external ears normal EXTERNAL AUDITORY CANAL: EAC's normal TYMPANIC MEMBRANE: TM's normal bilaterally Eye: COMMON NORMALS: Equal, round and reactive pupils present, EOMs intact bilaterally, conjunctivae normal and no scleral icterus CONJUNCTIVA: Yes conjunctivae normal PUPIL: Yes Equal, round and reactive pupils present Neck/C-Spine: COMMON NORMALS: full ROM, no lymphadenopathy, supple and no JVD Lymph: LYMPHATIC: no lymphadenopathy noted and no lymphedema noted Resp: COMMON NORMALS: normal respiratory effort, No retractions, No use of accessory muscles and clear to auscultation bilaterally AUSCULTATION: clear to auscultation bilaterally Cardio: COMMON NORMALS: no JVD, regular rate, regular rhythm and No murmurs present (Cardio) RATE: regular rate RHYTHM: regular rhythm GI: COMMON NORMALS: Soft to palpation and No hepatosplenomegaly present AUSCULTATION: Yes normoactive bowel sounds PALPATION: Yes Soft to palpation, No Tenderness to palpation present (GI), No Guarding due to palpation present (GI) and Yes No hepatosplenomegaly present Extremity: COMMON NORMALS: normal to inspection, capillary refill normal, no clubbing, cyanosis or edema, no calf tenderness and no pedal edema Neuro: SENSORIUM/ORIENTATION: Yes oriented to person, Yes oriented to place and Yes oriented to time Skin: COMMON NORMALS: no rashes or lesions noted GENERAL SKIN EXAM: no rashes or lesions noted Course Vital Signs: Vital signs: Vital Signs Temperature 98 F 04/26/22 12:20 Pulse Rate 53 L 04/26/22 15:15 Respiratory Rate 18 04/26/22 15:20 Blood Pressure 165/95 04/26/22 15:15 Pulse Oximetry 98 04/26/22 15:20 Oxygen Delivery Me thod 04/26/22 12:20 MDM - Chest Pain Medical Decision Making Positive delta Trope of 17 slight variation EKG especially in V2 and V3 compared to the first EKG. He still has some mild chest comfort was given morphine Lovenox and aspirin as well as Nitropaste. Initially given Nitropaste patient did not have significant relief switched to nitro drip. Review EKG with Dr. Cronin on-call for cardiology, he did not feel it represented a STEMI. Will admit Dr. Ward to [facility] on hospitalist service. Medical Records I reviewed the patient's medical records. Lab Data I reviewed the patient's lab results. : 04/26/22 12:37 04/26/22 12:37 Radiology Impressions Chest X-Ray 04/26/22 12:30 IMPRESSION: No acute findings. Laboratory Results WBC 5.5 10^3/uL (4.0-10.0) 04/26/22 12:37 RBC 4.19 10^6/uL (4.1-5.3) 04/26/22 12:37 Hgb 14.0 g/dL (11.7-16.6) 04/26/22 12:37 Hct 41.6 % (42.0-52.0) L 04/26/22 12:37 MCV 99.3 fl (80-94) H 04/26/22 12:37 MCH 33.4 pg (28.0-34.0) 04/26/22 12:37 MCHC 33.7 g/dL (30.0-36.0) 04/26/22 12:37 RDW 13.7 % (12.1-15.1) 04/26/22 12:37 Plt Count 163 10^3/cmm (130-400) 04/26/22 12:37 MPV 10.1 fL (7.4-10.4) 04/26/22 12:37 Neut % (Auto) 69.3 % 04/26/22 12:37 Lymph % (Auto) 23.5 % 04/26/22 12:37 [place] % (Auto) 5.6 % 04/26/22 12:37 Eos % (Auto) 0.5 % 04/26/22 12:37 Baso % (Auto) 0.9 % 04/26/22 12:37 Neut # (Auto) 3.83 10^3/uL (1.8-7.7) 04/26/22 12:37 Lymph # (Auto) 1.3 10^3/uL (0.8-4.8) 04/26/22 12:37 [place] # (Auto) 0.3 10^3/uL (0.2-0.9) 04/26/22 12:37 Eos # (Auto) 0.0 10^3/uL (0.0-0.8) 04/26/22 12:37 Baso # (Auto) 0.1 10^3/uL (0.0-0.1) 04/26/22 12:37 Nucleated RBC % (auto) 0 % 04/26/22 12:37 Nucleated RBCs # 0.0 /100WBC 04/26/22 12:37 Sodium 136 mmol/L (136-145) 04/26/22 12:37 Potassium 4.5 mmol/L (3.5-5.1) 04/26/22 12:37 Chloride 102 mmol/L (98-107) 04/26/22 12:37 Carbon Dioxide 23 mmol/L (22-29) 04/26/22 12:37 Anion Gap 15.5 (5-19) 04/26/22 12:37 BUN 10 mg/dL (6-20) 04/26/22 12:37 Creatinine 1.0 mg/dL (0.7-1.2) 04/26/22 12:37 GFR Calculation 77.0 mL/min (90-130) L 04/26/22 12:37 Glucose 115 mg/dL (65-115) 04/26/22 12:37 Calculated Osmolality 282 mOsm/kg (285-295) L 04/26/22 12:37 Calcium 9.0 mg/dL (8.5-10.5) 04/26/22 12:37 Total Bilirubin 0.4 mg/dL (0.15-1.2) 04/26/22 12:37 AST 28 U/L (0-40) 04/26/22 12:37 ALT 26 U/L (0-41) 04/26/22 12:37 Alkaline Phosphatase 102 U/L (40-130) 04/26/22 12:37 Troponin T Baseline 17 ng/L (0-15) H 04/26/22 12:37 Troponin T 120 Minute 34.26 ng/L (0-15) H 04/26/22 14:33 Delta Troponin T 17.26 ABS# (0-10) H* 04/26/22 14:33 Total Protein 6.8 g/dL (6.6-8.7) 04/26/22 12:37 Albumin 3.6 g/dL (3.5-5.2) 04/26/22 12:37 Globulin 3.2 g/dL (1.3-4.6) 04/26/22 12:37 Discharge Plan Discharge Patient Disposition: Admitted As Inpatient Clinical Impression: Non-ST elevation AL (NSTEMI) Condition: Stable Coding Level of Care Code ED Marzipan Maker for Dave Fwd Exam Comprehensive
[2022-04-26 12:51] LABS: Basophils # 0.1 10^3/uL (0.0-0.1); Basophils % 0.9 %; Eosinophils % 0.5 %; Hematocrit 41.6 % (42.0-52.0); Lymphocytes # 1.3 10^3/uL (0.8-4.8); Lymphocytes % 23.5 %; Mean Corpuscular HGB Conc 33.7 g/dL (30.0-36.0); Mean Corpuscular Hemoglobin 33.4 pg (28.0-34.0); Mean Corpuscular Volume 99.3 fl (80-94); Mean Platelet Volume 10.1 fL (7.4-10.4); Monocytes # 0.3 10^3/uL (0.2-0.9); Monocytes % 5.6 %; Neutrophils # 3.83 10^3/uL (1.8-7.7); Neutrophils % 69.3 %; Nucleated Red Blood Cells % 0 %; Platelet Count 163 10^3/cmm (130-400); Red Blood Count 4.19 10^6/uL (4.1-5.3); Red Cell Distribution Width 13.7 % (12.1-15.1); White Blood Count 5.5 10^3/uL (4.0-10.0)
[2022-04-26 12:59] LABS: Troponin(5th) Baseline 17 ng/L (0-15)
[2022-04-26 13:02] LABS: Albumin Level 3.6 g/dL (3.5-5.2); Alkaline Phosphatase 102 U/L (40-130); Anion Gap 15.5 (5-19); Blood Urea Nitrogen 10 mg/dL (6-20); Carbon Dioxide 23 mmol/L (22-29); Chloride 102 mmol/L (98-107); Globulin 3.2 g/dL (1.3-4.6); Glucose 115 mg/dL (65-115); Osmolality Calculated 282 mOsm/kg (285-295); Potassium 4.5 mmol/L (3.5-5.1); Sodium 136 mmol/L (136-145); Total Bilirubin 0.4 mg/dL (0.15-1.2); Total Protein 6.8 g/dL (6.6-8.7)
[2022-04-26 13:03] LABS: Alanine Aminotransferase 26 U/L (0-41); Aspartate Amino Transferase 28 U/L (0-40)
--- NOTE | 2022-04-26 14:02 | PC.PHAR ---
PT STATES HE TAKES NO RX MEDICATIONS-RXS WRITTEN 09/25/2019 FOR ALBUTEROL INHALER 2P Q8H PRN-ATORVASTATIN 40MG HS-PLAVIX 75MG DAILY-AND METOPROLOL TARTRATE 25MG BID PT STATES NEVER TOOK-PT STATE NORMALLY HE TAKES 325MG ASPIRIN DAILY PT STATES BEEN OUT FOR A WEEK-NOTES ARE MADE IN THE PHARMACY COMMENTS
--- NOTE | 2022-04-26 14:30 | ECG_ITS ---
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 Measurements Intervals [place] Rate: 68 P: 65 ID: [id number] QRS: -41 QRSD: 111 T: 40 QT: 379 QTc: 405 Interpretive Statements SINUS RHYTHM LEFT AXIS DEVIATION [QRS AXIS < -30] INCOMPLETE RIGHT BUNDLE BRANCH BLOCK [90+ ms QRS DURATION, TERMINAL R IN V1/V2, 40+ ms S IN I/aVL/V4/V5/V6] Compared to ECG 09/23/2019 13:59:36 Left-axis deviation now present Electronically Signed On 04-26-2022 20:37:59 CDT by Neema Hutton M.D. [email or web address] [email or web address]/store/[id number]
[2022-04-26 14:56] LABS: Troponin 5 2HR 34.26 ng/L (0-15)
[2022-04-26 14:58] LABS: Troponin 5 2HR Delta 17.26 ABS# (0-10)
[2022-04-26] MEDS: nitroglycerin 1 gm/inch oint Pkt 1 INCH TOPICAL (15:13)
--- NOTE | 2022-04-26 15:16 | ECG_ITS ---
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 Measurements Intervals [place] Rate: 52 P: 68 NE: 161 QRS: -24 QRSD: 113 T: 37 QT: 417 QTc: 388 Interpretive Statements SINUS BRADYCARDIA BORDERLINE LEFT AXIS DEVIATION [QRS AXIS < -20] INCOMPLETE RIGHT BUNDLE BRANCH BLOCK [90+ ms QRS DURATION, TERMINAL R IN V1/V2, 40+ ms S IN I/aVL/V4/V5/V6] Compared to ECG 04/26/2022 12:38:06 Sinus rhythm no longer present Electronically Signed On 04-26-2022 20:37:34 CDT by Neema Hutton M.D. [email or web address] general [email or web address].TripleL[employer]/store/OM/[id number]
[2022-04-26] MEDS: morphine 4 mg/mL SDV 1 mL IVP (15:20)
[2022-04-26] MEDS: aspirin 81 mg Chew Tablet 324 MG PO (15:20)
[2022-04-26] MEDS: nitroglycerin drip 50 MG/250 ML PREMIX IV (15:41)
[2022-04-26] MEDS: enoxaparin 100 mg/mL Syringe 90 MG SUBCUT (15:49)
--- NOTE | 2022-04-26 16:15 | PM.HP ---
Providers/Chief Complaint Chief Complaint: chest discomfort History of Present Illness Mynor Condon is a 56 year old male who is a current smoker, past medical history of hypertension, hyperlipidemia, chronic alcoholism not on any medications who does not follow-up with any primary care provider patient to the ER today after experiencing bilateral arm numbness along with localized chest pain associated with mild difficulty in breathing today morning. Symptoms not recreated with nausea, vomiting, palpitations, radiation. States he has been having the symptoms on and off for last 1 month or so. Has significant family history of CAD and stroke with mother having bypass surgery at age of less than 45. In the ER was found to have an elevated blood pressure of more than 180 mmHg. Patient states he never does not usually check his blood pressures at home. Review of Systems General: Reports: 10 or more systems reviewed and unremarkable except in HPI and below Const: Denies: fever(s), chills, body aches, change in appetite, change in weight, malaise, night sweats, diaphoresis, change in sleep pattern, daytime sleepiness or snoring Eyes: Denies: change in vision, blurry vision, photophobia, eye discomfort or eye discharge ENMT: Denies: throat pain, enlarged tonsils, hoarseness, mouth pain, oral sores, dry mouth, tinnitus, nasal congestion or post nasal drip Card: Denies: chest pain, palpitations, irregular heart rhythm, edema, swelling of feet/ankles, lightheadedness, syncope, pre-syncope, dyspnea on exertion, orthopnea, leg pain with exertion or acrocyanosis Resp: Denies: dyspnea, productive cough, non-productive cough, wheezing, stridor, pain on inspiration, change in phlegm color, hemoptysis or chest congestion GI: Denies: abdominal pain, nausea, vomiting, hematemesis, coffee ground emesis, dysphagia, heartburn, diarrhea, constipation, bloating, GI cramping, change in bowel habits, pain on defecation, hematochezia or melena : Denies: flank pain, difficulty urinating, dysuria, urinary frequency, urinary urgency, urinary hesitancy, urinary dribbling, difficulty starting urination, change in urine stream, nocturia or hematuria Musc: Denies: neck pain, back pain, extremity pain, joint pain, joint swelling, joint redness, joint stiffness or limited range of motion Neuro: Denies: headache(s), numbness in extremities, weakness in extremities, sensory changes, lack of coordination, difficulty walking, frequent falls, dizziness, vertigo, confusion, Slurred speech present, difficulty communicating thoughts or seizure-like activity Psych: Denies: anxiety, depression, mood swings, panic attacks, hopelessness or irritability Endo: Denies: polyuria, polydipsia, tired all the time, cold intolerance, excessive sweating, flushing or heat intolerance Zachery/Lymph: Denies: easy bruising or easy bleeding All/Imm: Denies: tongue swelling, facial swelling or acute wheezing Medications/Allergies Home Medications Medication Instructions Recorded Confirmed Last Taken Type aspirin 325 mg tablet 325 mg PO QAM 04/26/22 04/26/22 1 Week Ago History ~04/19/22 aspirin-caffeine 845 mg-65 mg oral 2 ea PO DAILY PRN Pain 04/26/22 04/26/22 04/26/22 10:00 History powder packet (BC Pain Relief) 2 PACK Allergies Allergy/AdvReac Type Severity Reaction Status Date / Time tramadol [From [facility]] Allergy Unknown Verified 04/26/22 13:53 PFSH Acute PFSH: Medical History (Updated 04/26/22 @ 16:29 by Tank Ward MD) Chronic back pain HLD (hyperlipidemia) HTN (hypertension) IBS (irritable bowel syndrome) Sciatica Smoker Smoking addiction Urine retention Family History Other Alcoholism Social History Smoking and tobacco status: current every day smoker cigarettes Packs smoked per day: 0.5 Alcohol intake: current Alcohol intake frequency: 3 or more drinks per day Vitals/I&O/Wt Last Vital Signs Temp 98 F 04/26/22 12:20 Pulse 53 L 04/26/22 15:15 Resp 18 04/26/22 15:20 BP 165/95 04/26/22 15:15 Pulse Ox 98 04/26/22 15:20 O2 Del Method 04/26/22 12:20 Weight last 48 hrs Weight 83.915 kg Physical Exam Narrative: General: No acute distress, AO x3 HEENT: PERRLA, pupils bilaterally equal and reactive Chest: Normal vesicular breath sounds, no added sounds, equal good air entry bilaterally CVS: S1-S2 regular, no murmurs, no tachycardia, no gallops, no rubs Abdomen: Soft, nontender, no organomegaly, bowel sounds present Neuro: No focal deficits, no facial deformity, AO x3, power 5/5 in all limbs Data : 04/26/22 12:37 04/26/22 12:37 A&P Assessment and plan (1) Atypical chest pain: Status: Acute (2) Elevated troponin: Status: Acute (3) Hypertensive urgency: Status: Acute (4) Smoker: Status: Acute (5) HLD (hyperlipidemia): Status: Acute Plan [id number] gentleman with history of hypertension, hyperlipidemia, significant family history, with no follow-up with primary care provider presented with atypical chest pain and arm numbness found to have hypertensive urgency. Hypertensive urgency: Goal blood pressure less than 150/90 mmHg which is 25% of presenting blood pressure. Started on nitro drip in the ER. Wean of given the goals. Start on Imdur 30 mg oral daily, losartan 50 mg oral daily. For now cannot use beta-juana given bradycardia. If needed can uptitrate medications or add hydralazine. Atypical chest pain: Delta troponin was 17 in 2 hours. Cardiology consulted in the ER. Continues to have mild chest pressures. Blood pressure still mildly elevated. Check echocardiogram, urine drug screen, D-dimer, urinalysis, A1c, lipid panel. Given full dose of aspirin in the ER. Continue aspirin 81 mg oral daily. Atorvastatin 40 mg oral daily. Lovenox 1 mg/kg body weight every 12 hourly for now. Will defer to cardiology regarding cardiac stress test versus cardiac angiogram for further evaluation and management. Full code. Full dose Lovenox will suffice for DVT prophylaxis Famotidine for PUD prophylaxis N.p.o. till seen by cardiology services. Attestations Medical Necessity Statement*: Admission for more than 2 midnights for management of hypertensive urgency, atypical chest pain while non-ST elevation MT is ruled out Time Spent in Patient Care: Greater than 35 minutes Coding Level of Care Code Acute Supportive Employment Case Manager for Chg Fwd Diagnoses Atypical chest pain R07.89 Elevated troponin R77.8 Hypertensive urgency I16.0 Smoker F17.200 HLD (hyperlipidemia) E78.5
--- NOTE | 2022-04-26 16:29 | USCV_ITS ---
Mynor Condon Age: 56 Gender: M : 1965 Exam Date: 04/26/2022 16:47 Ordering Phys: Tank Ward MD Technologist: Gerber Landeros Exam Location: [facility] [place] Indication: nstemi BP: 163 / 97 HR: 49 Rhythm: Sinus Technical Quality: Good MEASUREMENTS (Male / Female) Normal Values 2D ECHO LV Diastolic Diameter PLAX 4.8 cm 4.2 - 5.9 / 3.9 - 5.3 cm LV Systolic Diameter PLAX 2.4 cm IVS Diastolic Thickness 1.1 cm 0.6 - 1.0 / 0.6 - 0.9 cm IVS Systolic Thickness 1.0 cm LVPW Diastolic Thickness 1.0 cm 0.6 - 1.0 / 0.6 - 0.9 cm LVPW Systolic Thickness 2.6 cm LVOT Diameter 2.2 cm LV Ejection Fraction 2D Teich 68.9 % LV Ejection Fraction MOD 2C 75.1 % LV Ejection Fraction 2C AL 74.9 % LA Diameter 3.8 cm IVC Diameter 1.4 cm M-MODE Aortic Annulus Diameter 3.2 cm LA Ao Ratio MM 1.4 MV E Point Septal Separation 1.0 cm DOPPLER AV Peak Velocity 145.3 cm/s LVOT Peak Velocity 89.0 cm/s AV Area Cont Eq vti 2.0 cm squared AV Area Cont Eq pk 2.3 cm squared MV Area PHT 2.2 cm squared Mitral E to A Ratio 1.4 MV E' Velocity 42.0 cm/s Mitral E to MV E' Ratio 5.9 Mitral E to LV E' Lateral Ratio 5.2 Mitral E to LV E' Septal Ratio 6.8 TR Peak Velocity 311.0 cm/s TR Peak Gradient 38.7 mmHg TV Peak E Velocity 95.0 cm/s Right Atrial Pressure 3.0 mmHg Pulmonary Artery Systolic Pressu 41.7 mmHg RV Acceleration Time 0.2 s FINDINGS Left Ventricle Left ventricle is normal in size. LV systolic function is normal with EF of 55-60%. No regional wall motion abnormalities. Right Ventricle Normal in size and function Right Atrium Normal in size Left Atrium Normal in size Mitral Valve Structurally normal mitral valve. Mild mitral regurgitation. Aortic Valve Grossly normal aortic valve. No significant stenosis or regurgitation. Tricuspid Valve Trace tricuspid regurgitation. Insufficient TR jet to evaluate RVSP. Pulmonic Valve Not well-visualized Pericardium Normal Aorta Normal in size IVC IVC appears to be normal CONCLUSIONS LV systolic function is normal with EF of 55-60% Mild mitral regurgitation Trace tricuspid regurgitation Compared to prior echocardiogram from 09/24/2019, no significant changes are seen Eugenio Galloway MD (Electronically Signed) Final Date: 10 May 2022 11:13 S
--- NOTE | 2022-04-26 16:38 | PM.CONSULT ---
Providers/Reason For Consult Consulting Physician/Specialty*: Eugenio Galloway MD/Cardiology Reason for Consult*: NSTEMID Requesting Physician: Dr Iniguez History of Present Illness History of Present Illness Mynor Condon is a 56 year old male with past medical history of hypertension, smoking presented to the hospital with chest pain. He says it started in the morning. Has been having on and off chest discomfort. Interventional cardiology was consulted because of concern for ST elevation on EKG. No ST elevation was noted. His blood pressure was very high. His troponins did trend up significantly from 17-81 at 6 hours. Still having on and off chest discomfort. Has been started on nitro drip. Review of Systems General: Reports: 10 or more systems reviewed and unremarkable except in HPI and below Const: Denies: fever(s), chills, body aches, change in appetite, change in weight, malaise, night sweats, diaphoresis, change in sleep pattern, daytime sleepiness or snoring Eyes: Denies: change in vision, blurry vision, photophobia, eye discomfort or eye discharge ENMT: Denies: throat pain, enlarged tonsils, hoarseness, mouth pain, oral sores, dry mouth, tinnitus, nasal congestion or post nasal drip Card: Reports: chest pain; Denies: palpitations, irregular heart rhythm, edema, swelling of feet/ankles, lightheadedness, syncope, pre-syncope, dyspnea on exertion, orthopnea, leg pain with exertion or acrocyanosis Resp: Denies: dyspnea, productive cough, non-productive cough, wheezing, stridor, pain on inspiration, change in phlegm color, hemoptysis or chest congestion GI: Denies: abdominal pain, nausea, vomiting, hematemesis, coffee ground emesis, dysphagia, heartburn, diarrhea, constipation, bloating, GI cramping, change in bowel habits, pain on defecation, hematochezia or melena : Denies: flank pain, difficulty urinating, dysuria, urinary frequency, urinary urgency, urinary hesitancy, urinary dribbling, difficulty starting urination, change in urine stream, nocturia or hematuria Musc: Denies: neck pain, back pain, extremity pain, joint pain, joint swelling, joint redness, joint stiffness or limited range of motion Neuro: Denies: headache(s), numbness in extremities, weakness in extremities, sensory changes, lack of coordination, difficulty walking, frequent falls, dizziness, vertigo, confusion, Slurred speech present, difficulty communicating thoughts or seizure-like activity Psych: Denies: anxiety, depression, mood swings, panic attacks, hopelessness or irritability Endo: Denies: polyuria, polydipsia, tired all the time, cold intolerance, excessive sweating, flushing or heat intolerance Zachery/Lymph: Denies: easy bruising or easy bleeding All/Imm: Denies: tongue swelling, facial swelling or acute wheezing Medications/Allergies Home Medications Medication Instructions Recorded Confirmed Last Taken Type aspirin 325 mg tablet 325 mg PO QAM 04/26/22 04/26/22 1 Week Ago History ~04/19/22 aspirin-caffeine 845 mg-65 mg oral 2 ea PO DAILY PRN Pain 04/26/22 04/26/22 04/26/22 10:00 History powder packet (BC Pain Relief) 2 PACK Allergies Allergy/AdvReac Type Severity Reaction Status Date / Time tramadol [From [facility]] Allergy Unknown Verified 04/26/22 13:53 Current Medications Generic Name Dose Route Start Last Admin Trade Name Freq PRN Reason Stop Dose Admin Nitroglycerin/Dextrose 50 mg in 250 mls @ 0 mls/hr 04/26/22 15:45 04/26/22 16:18 Nitroglycerin Drip IV 5 mcg/min .Q0M ALVARADO 1.5 mls/hr Titration Protocol Per Protocol PFSH Acute PFSH: Medical History Chronic back pain HLD (hyperlipidemia) HTN (hypertension) IBS (irritable bowel syndrome) Sciatica Smoker Smoking addiction Urine retention Family History Other Alcoholism Social History Smoking and tobacco status: current every day smoker cigarettes Packs smoked per day: 0.5 Alcohol intake: current Alcohol intake frequency: 3 or more drinks per day Vitals/I&O/Wt Last Vital Signs Temp 98 F 04/26/22 12:20 Pulse 53 L 04/26/22 15:15 Resp 18 04/26/22 15:20 BP 165/95 04/26/22 15:15 Pulse Ox 98 04/26/22 15:20 O2 Del Method 04/26/22 12:20 04/26/22 04/26/22 04/26/22 06:59 14:59 22:59 Intake Total 1.85 / 1.85 Balance 1.85 / 1.85 Weight last 48 hrs Weight 185 lb Physical Exam Narrative: GENERAL: Patient is alert, awake and oriented x3. [] NECK: No jugular vein distension. [] HEENT: No cyanosis. No icterus. No pallor. [] HEART: Regular S1 and S2. No murmur, rub or gallop. [] LUNGS: Clear to auscultate bilaterally. [] ABDOMEN: Soft, nontender and nondistended. Positive bowel sounds. No guarding, rebound or tenderness. [] CENTRAL NERVOUS SYSTEM: Grossly nonfocal. [] EXTREMITIES: Lower extremities with 1+ edema bilaterally. Pulses palpable in the lower extremities, both dorsalis pedis and posterior tibial. [] Data : 04/27/22 05:09 04/27/22 05:09 A&P Assessment and plan (1) Smoker: Status: Acute (2) Hypertensive urgency: Status: Acute (3) Non-ST elevation OR (NSTEMI): Status: Acute (4) HLD (hyperlipidemia): Status: Acute (5) HTN (hypertension): Status: Acute Plan Patient has been having on and off chest discomfort. Troponins went up significantly. It could be related to hypertensive urgency however given his risk factors and significant elevation of troponin along with ongoing chest pain, we will proceed with coronary angiogram with possible percutaneous coronary intervention. Risks and benefit of the procedure have been discussed with the patient. He understands the risks and benefits and wants to proceed with it. Continue aspirin. Continue anticoagulation. Nitro drip Echocardiogram ordered. Thank you for involving us with care of this patient. We will continue to follow. Please call with questions. Consult Attestations Medical Necessity Statement: Care expected to cross 2 midnights Coding Level of Care Code Acute Human Resources Receptionist for [facility] Fwd Diagnoses Smoker F17.200 Hypertensive urgency I16.0 Non-ST elevation OR (NSTEMI) I21.4 HLD (hyperlipidemia) E78.5 HTN (hypertension) I10
[2022-04-26 16:59] LABS: Amphetamines Screen Urine Negative (Negative); Barbiturates Screen Urine Negative (Negative); Benzodiazepines Screen Urine Negative (Negative); Cocaine Screen Urine Negative (Negative); Opiate Screen Urine Positive (Negative); PCP Screen Urine Negative (Negative); THC Screen Urine Positive (Negative)
[2022-04-26 17:07] LABS: Add Urine Culture? No; Add Urine Microscopic? YES; Bacteria Urine TRACE /hpf; Bilirubin Urine Neg (Negative); Blood Urine Trace (Negative); Glucose Urine UA Norm (Normal); Ketones Urine Negative (Negative); Leukocyte Esterase Urine Negative (Negative); Nitrate Urine Negative (Negative); Protein Urine Neg (Negative); RBC Urine 0-4 /hpf (0-2); Squamous Epithelial Cell Urine 0-4 /hpf (0-5); Urine Appearance Clear (CLEAR); Urine Color Straw (Yellow); Urobilinogen Urine Norm (Negative); WBC Urine 0-4 /hpf (0-5); pH Urine 6.5 (5-7)
[2022-04-26 17:24] LABS: D Dimer 0.41 ug/mIFEU (0-0.59)
[2022-04-26 18:04] LABS: Folate Level 5.5 ng/mL (4.5-32.2)
[2022-04-26 18:51] LABS: Procalcitonin 0.03 ng/mL (0-0.5); Thyroid Stimulating Hormone 0.46 uIU/mL (0.27-4.20); Vitamin B12 181 pg/mL (232-1245)
[2022-04-26 19:02] LABS: Iron 134 ug/dL (59-158)
[2022-04-26 19:27] LABS: Troponin 5 6HR 81.71 ng/L (0-15)
[2022-04-26 19:29] LABS: Percent Saturation 55.3 % (20-50); Total Iron Binding Capacity 242 mcg/dl; Unsaturated Iron Binding 108 ug/dL (112-347)
[2022-04-26 19:36] LABS: Troponin 5 6HR Delta 64.71 ng/L (0-12)
[2022-04-27] VITALS (25 sets, daily range): BP systolic 104–176; BP diastolic 58–102; PULSE 45–80; RESP 12–21; TEMP 36.3–36.7; O2SAT 93–98
[2022-04-27 05:44] LABS: Basophils % 0.8 %; Eosinophils # 0.1 10^3/uL (0.0-0.8); Eosinophils % 1.8 %; Hematocrit 43.1 % (42.0-52.0); Hemoglobin 14.8 g/dL (11.7-16.6); Lymphocytes # 1.2 10^3/uL (0.8-4.8); Lymphocytes % 30.2 %; Mean Corpuscular HGB Conc 34.3 g/dL (30.0-36.0); Mean Corpuscular Hemoglobin 33.6 pg (28.0-34.0); Mean Corpuscular Volume 97.7 fl (80-94); Mean Platelet Volume 9.8 fL (7.4-10.4); Monocytes # 0.3 10^3/uL (0.2-0.9); Monocytes % 6.5 %; Neutrophils % 60.4 %; Nucleated Red Blood Cells % 0 %; Platelet Count 141 10^3/cmm (130-400); Red Blood Count 4.41 10^6/uL (4.1-5.3); Red Cell Distribution Width 13.8 % (12.1-15.1)
[2022-04-27] MEDS: enoxaparin 100 mg/mL Syringe 80 MG SUBCUT (05:48)
[2022-04-27] MEDS: famotidine 20 mg/2 mL INJ IVP (05:48)
[2022-04-27 05:56] LABS: Estmated Average Glucose 114; Hemoglobin A1C 5.6 % (4.0-6.0)
[2022-04-27 06:10] LABS: Alanine Aminotransferase 23 U/L (0-41); Albumin Level 3.6 g/dL (3.5-5.2); Alkaline Phosphatase 82 U/L (40-130); Anion Gap 12.8 (5-19); Aspartate Amino Transferase 22 U/L (0-40); Blood Urea Nitrogen 10 mg/dL (6-20); Calcium 9.1 mg/dL (8.5-10.5); Carbon Dioxide 26 mmol/L (22-29); Chloride 102 mmol/L (98-107); Chol HDL Ratio 3.95 mg/dL (1.0-5.00); Cholesterol 146 mg/dL (0-200); Glucose 95 mg/dL (65-115); HDL Cholesterol 37 mg/dL (60-100); LDL Cholesterol Calculated 78 mg/dL (50-129); Osmolality Calculated 283 mOsm/kg (285-295); Potassium 3.8 mmol/L (3.5-5.1); Sodium 137 mmol/L (136-145); Total Bilirubin 0.6 mg/dL (0.15-1.2); Total Protein 6.6 g/dL (6.6-8.7); Triglycerides 156 mg/dL (0-150); VLDL Cholestrol Calculation 31 mg/dL (0-30)
--- NOTE | 2022-04-27 07:29 | XACV_ITS ---
Exam Room: [facility] Ht: 183 cm Wt: 81 kg BSA: 2.03 m2 Gender: Male : 1965 Any Known Allergies: Other Exam Priority: Routine Procedure(s): Procedure Description: Diagnostic procedure Procedure Description: Left Heart Catheterization Procedure Description: Coronary Angiography Procedure Description: Pressure Wire Diagnostic Cath Status: Urgent Diagnostic Findings * Circumflex has luminal irregularities. * Proximal Left Anterior Descending to Mid Left Anterior Descending: moderate 60% stenosis, VENESSA: 3 flow. * 1st Diagonal: moderate 60% stenosis, VENESSA: 3 flow. * Left Main has no disease. * Right Coronary Artery has no disease. * Coronary angiography shows right dominance. Interventional Findings * PROCEUDRE DETAIL: We engaged the left main artery with XB 3.5 guide catheter. IV heparin was administered to maintain ACT above 250 S. We used IFR wire to cross the lesion after normalization. Proximal to mid LAD was found to have nonischemic IFR value of 0.91. At this time we decided to treat patient medically. iFR wire was removed. Patient left the Lan Support Specialist in a stable condition.. Conclusions 1. Moderate proximal to mid LAD stenosis status post IFR that was nonischemic. Medical therapy decided. Moderate proximal diagonal artery stenosis.. Recommendations * Aggressive risk factor modification including blood pressure control. * Outpatient cardiology follow-up in 4-week. Interventional RX Recommendation: medical therapy and/or counseling Diagnostic RX Recommendation: medical therapy and/or counseling Pressures Phase:Rest AO : 117 / 66 ( 86 ) @ 12:50:00 PM 117 / 65 ( 86 ) @ 12:50:00 PM LV : 141 / -7 / 14 @ 12:50:00 PM 137 / -6 / 12 @ 12:50:00 PM Valves Phase:DefaultPhase AV : 19.0 @ 11:57:38 AM AV Mean Gradient: 14.0 @ 11:57:38 AM Clinical Evaluation EBL: 5mL-10mL Procedural Details Pre-Procedure Time Out. Identified patient by full name and date of as verbalized by the patient/guarantor. Does the consent match the physician's order: Yes. Accurate & Complete Informed Consent: Yes. Inpatient/Outpatient History & Physical on Chart: Yes. If H&P is completed, is and addenduem needed: No; If yes, is the addendum complete: N/A. Visualize and Verify Site with Patient/Guarantor: N/A. Relevant Radiology Images available: Yes. Pre-op teaching completed and patient verbalized understanding. The risks, benefits, and alternatives of sedation and/or procedure were discussed by physician. The patient agrees to continue. Procedure started. Current Diagnosis : NSTEMI. Admit Source: In Patient. [facility] Clinical Fraility Score: 3: Managing Well. Lan Support Specialist Indications: Worsening Angina. Current diagnosis: NSTEMI. Correct patient, site and procedure confirmed by cath team. Chest Pain Symptom Assessment: Typical Angina Symptoms. PERRLA. Strong, equal hand dragline engineer bilaterally. Lungs clear x 5 lobes. IV Site on Arrival: 20 gauge in the left hand. IV Fluids: 0.9% NaCl at KVO. mL infused prior to dental laboratory assistant. Pre Procedural Pulses: bilateral radial was 2+. Pre Procedural Pulses: bilateral dorsalis pedis was 2+. Oxygen started at 2liters/min via nasal canula. right radial was prepped with chloroprep then draped in the usual sterile fashion. right groin was prepped with chloroprep then draped in the usual sterile fashion. Baseline sample Acquired. HR: 49 BPM. Physician notified. Physician arrived. Physician scrubbed in. Immediate Pre-Procedure Time Out. Correct Patient: Yes; Correct Procedure: Yes; Correct Site: Yes; Correct Patient Position: Yes; Correct Supplies: Yes; Dried Flammable Prep: Yes; Blood Products Available: N/A;. Lidocaine 1% infiltrated to the right radial. Arterial access obtained. A 5 swedish TIG catheter in over wire. Exchange wire out. No anticoagulation given at this time due to therapeutic Lovenox administered on floor. Multiple views taken of left coronary artery. Catheter redirected to the RCA. Multiple views taken of right coronary artery. Catheter removed over the exchange wire. 6 swedish XB 3.5 guide catheter was inserted over the wire. IFR pressure wire advanced through guide catheter to lesion in proximal LAD. IFR pressure wire advanced across lesion, seated in distal LAD. IFR proximal LAD 0.91. IFR wire out. Guide catheter out over exchange wire. 5fr tiger catheter in over exchange wire. EDP Sample taken: LV 141/-8,14; HR: 56 BPM; SpO2: 97%. Pullback taken: LV 137/-7,12; AO 117/66(86); Mean: 14mmHg, Peak to Peak: 19mmHg, SEP: 15sec/min; HR: 60 BPM; SpO2: 98%. Catheter and wire out. Physician scrubbed out. A TR Band was successful obtaining hemostatsis at the Right Radial artery insertion site. Post Procedure: Pulses reassessed and unchanged. PERRLA. Strong, equal hand dragline engineer bilaterally. No VTE prophylaxis required. Medication's Wasted: Lidocaine 1% = 2 mL. Medication's Wasted: Nitro = 49.8 mg. Medication's Wasted: Heparin = 1000 unit. Medication's Wasted: Other = Versed 4 mg. Total IV fluids: 75 mL. Post-op diagnosis: Moderate proximal LAD stenosis, moderate diagonal stenosis. Complications: None. Estimated blood loss: 5mL-10mL. Responsiveness - Normal response to verbal stimuli; alert and oriented, PERRLA. Airway - Unaffected, no intervention required; spontaneous ventilation. Circulation: W/N/L, pulses unchanged. Nausea/Vomiting: N/A. Procedure completed. Patient transferred by wheelchair to [facility]. Vital chart was stopped. Access Site Site: Right Radial artery Sheath Size: 6 Fr Hemostasis Method: TR Band Hemostasis Success: Successful Procedure Medications Start: 11:31 AM Stop: 11:31 AM Medication: Versed Amount: 1 mg Route: I.V. Start: 11:32 AM Stop: 11:32 AM Medication: Fentanyl Amount: 50 mcg Route: I.V. Start: 11:34 AM Stop: 11:34 AM Medication: Versed Amount: 1 mg Route: I.V. Start: 11:35 AM Stop: 11:35 AM Medication: Nitrogylcerin Amount: 200 mcg Route: I.A. Start: 11:36 AM Stop: 11:36 AM Medication: Fentanyl Amount: 50 mcg Route: I.V. Start: 11:37 AM Stop: 11:37 AM Medication: Versed Amount: 1 mg Route: I.V. Start: 11:45 AM Stop: 11:45 AM Medication: Versed Amount: 1 mg Route: I.V. I, the attending physician, have reviewed and verified all procedure medications. Yes, all medications given per verbal order History/Risk Factors Hypertension: Yes Dyslipidemia: Yes Peripheral Arterial Disease (PAD): No Myocardial Infarction ([place]): No Obesity: No Renal Disease: No Tobacco Use: Current/Recent(w/in 1 year) Prior Interventions PCI: No CABG: No Valve Surgery: No Report Signatures Finalized by Eugenio Galloway MD on 05/07/2022 02:05 PM
[2022-04-27] MEDS: losartan 50 mg Tablet PO (08:11)
[2022-04-27] MEDS: ferrous gluconate 324 mg Tablet PO (08:11)
--- NOTE | 2022-04-27 11:28 | W.PM.OPSUD ---
Surgery/Procedure H&P Update DATE OF PROCEDURE: April 27, 2022 DATE H&P PERFORMED: 04/26/22 H&P UPDATE INFORMATION: I have reviewed H&P completed within last 30 days, I have examined patient prior to procedure and No changes to prior documentation PREOP DIAGNOSIS: NSTEMI PRIMARY INDICATION FOR PROCEDURE: NSTEMI PLANNED PROCEDURE: Left heart cath with possible percutaneous coronary intervention PATIENT REASSESSED PRIOR TO SEDATION, WITH NO CHANGE NOTED: Yes PHYSICAL EXAM: alert, oriented x 3, clear to auscultation bilaterally and regular rate & rhythm AIRWAY EVAL/ANESTHESIA PLAN: ASA III, Local Anesthesia, Risks, benefits & alternatives of sedation and/or procedure discussed and Patient agrees to continue as planned ADDITIONAL INFORMATION: Moderate sedation
--- NOTE | 2022-04-27 12:04 | P.PN_ITS ---
Subjective Subjective: Patient has occasional discomfort. Overall doing well. Underwent coronary angiogram today that showed moderate stenosis of proximal LAD and diagonal artery. LAD had IFR performed that was nonischemic with a value of 0.91. Vitals/I&O/Wt Last Vital Signs Temp 98.1 F 04/27/22 07:28 Pulse 49 L 04/27/22 08:00 Resp 15 04/27/22 07:28 BP 138/72 04/27/22 08:11 Pulse Ox 95 04/27/22 08:00 O2 Del Method 04/27/22 08:00 04/26/22 04/27/22 04/27/22 22:59 06:59 14:59 Intake Total 6.575 / 6.575 64.35 / 64.35 Output Total 450 / 450 Balance 6.575 / 6.575 -450 / -443.425 64.35 / 64.35 Weight last 48 hrs Weight 178 lb 12.8 oz Weight 185 lb Weight 185 lb Physical Exam Narrative: GENERAL: Patient is alert, awake and oriented x3. [] NECK: No jugular vein distension. [] HEENT: No cyanosis. No icterus. No pallor. [] HEART: Regular S1 and S2. No murmur, rub or gallop. [] LUNGS: Clear to auscultate bilaterally. [] CENTRAL NERVOUS SYSTEM: Grossly nonfocal. [] EXTREMITIES: Lower extremities with 1+ edema bilaterally. Pulses palpable in the lower extremities, both dorsalis pedis and posterior tibial. [] Data : 04/27/22 05:09 04/27/22 05:09 A&P Assessment and plan (1) Non-ST elevation MD (NSTEMI): Status: Acute (2) Hypertensive urgency: Status: Acute (3) Smoker: Status: Acute (4) HLD (hyperlipidemia): Status: Acute (5) HTN (hypertension): Status: Acute Plan Patient had moderate proximal LAD and diagonal artery stenosis. iFR of LAD is nonischemic. Aggressive medical therapy. Blood pressure is better controlled today. Continue aspirin and statin therapy. Thank you for involving us with care of this patient. We will continue to follow. Please call with questions. Attestations Medical Necessity Statement*: Care expected to cross 2 midnights Coding Level of Care Code Acute Fan Balancer for [facility] Fwd Diagnoses Non-ST elevation MD (NSTEMI) I21.4 Hypertensive urgency I16.0 Smoker F17.200 HLD (hyperlipidemia) E78.5 HTN (hypertension) I10
--- NOTE | 2022-04-27 14:01 | PC.NURSE ---
received from cardiac airport maintenance laborer at 1200.report received.pt is alert and awake.sr-sb on monitor.vss.right wrist with tr band on and inflated.right hand is warm to touch and with brisk capillary refill.no hematoma noted.palpable radial pulse noted distal to tr band.pt instructed in activity restrictions s/p radial artery procedure..and instructed to notify staff for any bleeding,pain,numbness,bruising,sob..or for any concerns at all.pt verb understanding of instructions
--- NOTE | 2022-04-27 14:15 | P.DS_ITS ---
Discharge Providers Date of Admission: 04/26/22 19:59 Date of Discharge: April 27, 2022 Attending Provider at Admission: Tank Ward MD Attending Provider at Discharge: Tank Ward MD Consults: Cardiology: Dr. Galloway Diagnoses at Discharge Discharge Diagnosis (1) Non-ST elevation MA (NSTEMI): Status: Acute (2) Hypertensive urgency: Status: Acute (3) Smoker: Status: Acute (4) HLD (hyperlipidemia): Status: Acute (5) HTN (hypertension): Status: Acute (6) Single vessel coronary artery disease: Status: Acute Reason for Visit Reason for Visit: chest discomfort Hospital Course Hospital Course Mynor Condon is a 56 year old male who is a current smoker, past medical history of hypertension, hyperlipidemia, chronic alcoholism not on any medications who does not follow-up with any primary care provider patient to the ER today after experiencing bilateral arm numbness along with localized chest pain associated with mild difficulty in breathing today morning.? Symptoms not recreated with nausea, vomiting, palpitations, radiation.? States he has been having the symptoms on and off for last 1 month or so.? Has significant family history of CAD and stroke with mother having bypass surgery at age of less than 45. In the ER was found to have an elevated blood pressure of more than 180 mmHg.? Patient states he never does not usually check his blood pressures at home. Patient was admitted to hospital further evaluation and management of CAD?chest pain, hypertensive urgency. Cardiology was consulted and he underwent cardiac angiogram on 04/27 which showed moderate stenosis of proximal LAD and diagonal artery. FFR was performed and lesion was not hemodynamically ischemic with a value of 0.91. Decision was to treat medically aggressive manner. During hospitalization at first he was started on nitro drip which was weaned off as oral antihypertensives were added. He has been discharged in hemodynamically stable condition with advised to follow-up with his primary care provider within next 1 week, Trista Cesar from [facility] within next 1 week on oral hypertensive, aspirin and statins. He has been counseled in detail for smoking and alcohol consumption abstinence. He is been counseled in detail regarding regular follow-up and compliance with medications. He verbalized understanding. Physical Exam Narrative: General: No acute distress, AO x3 HEENT: PERRLA, pupils bilaterally equal and reactive Chest: Normal vesicular breath sounds, no added sounds, equal good air entry bilaterally CVS: S1-S2 regular, no murmurs, no tachycardia, no gallops, no rubs Abdomen: Soft, nontender, no organomegaly, bowel sounds present Neuro: No focal deficits, no facial deformity, AO x3, power 5/5 in all limbs Discharge Data Studies Completed and Pending Completed Studies During Hospitalization Category Date Time Status XR chest 1V portable [id number] Stat Exams 04/26/22 12:30 Completed Pending at discharge Category Date Time Status 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 echo complete* [id number] Routine Ultrasound 04/26/22 16:29 Taken Radiology Impressions Chest X-Ray 04/26/22 12:30 IMPRESSION: No acute findings. Laboratory Results WBC 4.0 10^3/uL (4.0-10.0) 04/27/22 05:09 RBC 4.41 10^6/uL (4.1-5.3) 04/27/22 05:09 Hgb 14.8 g/dL (11.7-16.6) 04/27/22 05:09 Hct 43.1 % (42.0-52.0) 04/27/22 05:09 MCV 97.7 fl (80-94) H 04/27/22 05:09 MCH 33.6 pg (28.0-34.0) 04/27/22 05:09 MCHC 34.3 g/dL (30.0-36.0) 04/27/22 05:09 RDW 13.8 % (12.1-15.1) 04/27/22 05:09 Plt Count 141 10^3/cmm (130-400) 04/27/22 05:09 MPV 9.8 fL (7.4-10.4) 04/27/22 05:09 Neut % (Auto) 60.4 % 04/27/22 05:09 Lymph % (Auto) 30.2 % 04/27/22 05:09 [place] % (Auto) 6.5 % 04/27/22 05:09 Eos % (Auto) 1.8 % 04/27/22 05:09 Baso % (Auto) 0.8 % 04/27/22 05:09 Neut # (Auto) 2.40 10^3/uL (1.8-7.7) 04/27/22 05:09 Lymph # (Auto) 1.2 10^3/uL (0.8-4.8) 04/27/22 05:09 [place] # (Auto) 0.3 10^3/uL (0.2-0.9) 04/27/22 05:09 Eos # (Auto) 0.1 10^3/uL (0.0-0.8) 04/27/22 05:09 Baso # (Auto) 0.0 10^3/uL (0.0-0.1) 04/27/22 05:09 Nucleated RBC % (auto) 0 % 04/27/22 05:09 Nucleated RBCs # 0.0 /100WBC 04/27/22 05:09 D-Dimer 0.41 ug/mIFEU (0-0.59) 04/26/22 16:59 Sodium 137 mmol/L (136-145) 04/27/22 05:09 Potassium 3.8 mmol/L (3.5-5.1) 04/27/22 05:09 Chloride 102 mmol/L (98-107) 04/27/22 05:09 Carbon Dioxide 26 mmol/L (22-29) 04/27/22 05:09 Anion Gap 12.8 (5-19) 04/27/22 05:09 BUN 10 mg/dL (6-20) 04/27/22 05:09 Creatinine 0.9 mg/dL (0.7-1.2) 04/27/22 05:09 GFR Calculation 87.0 mL/min (90-130) L 04/27/22 05:09 Glucose 95 mg/dL (65-115) 04/27/22 05:09 Estimat Average Glucose 114 04/27/22 05:09 Hemoglobin A1c 5.6 % (4.0-6.0) 04/27/22 05:09 Calculated Osmolality 283 mOsm/kg (285-295) L 04/27/22 05:09 Calcium 9.1 mg/dL (8.5-10.5) 04/27/22 05:09 Iron 134 ug/dL (59-158) 04/26/22 14:33 TIBC 242 mcg/dl 04/26/22 14:33 % Saturation 55.3 % (20-50) H 04/26/22 14:33 Unsat Iron Binding 108 ug/dL (112-347) L 04/26/22 14:33 Total Bilirubin 0.6 mg/dL (0.15-1.2) 04/27/22 05:09 AST 22 U/L (0-40) 04/27/22 05:09 ALT 23 U/L (0-41) 04/27/22 05:09 Alkaline Phosphatase 82 U/L (40-130) 04/27/22 05:09 Troponin T Baseline 17 ng/L (0-15) H 04/26/22 12:37 Troponin T 120 Minute 34.26 ng/L (0-15) H 04/26/22 14:33 Delta Troponin T 17.26 ABS# (0-10) H* 04/26/22 14:33 Troponin T Hi Sens 6Hr 81.71 ng/L (0-15) H 04/26/22 19:05 Troponin T Hi Sens 6Hr Delta 64.71 ng/L (0-12) H* 04/26/22 19:05 Total Protein 6.6 g/dL (6.6-8.7) 04/27/22 05:09 Albumin 3.6 g/dL (3.5-5.2) 04/27/22 05:09 Globulin 3.0 g/dL (1.3-4.6) 04/27/22 05:09 Triglycerides 156 mg/dL (0-150) H 04/27/22 05:09 Cholesterol 146 mg/dL (0-200) 04/27/22 05:09 LDL Cholesterol, Calc 78 mg/dL (50-129) 04/27/22 05:09 Total VLDL Cholesterol 31 mg/dL (0-30) H 04/27/22 05:09 HDL Cholesterol 37 mg/dL (60-100) L 04/27/22 05:09 Cholesterol/HDL Ratio 3.95 mg/dL (1.0-5.00) 04/27/22 05:09 Vitamin B12 181 pg/mL (232-1245) L 04/26/22 14:33 Folate 5.5 ng/mL (4.5-32.2) 04/26/22 16:30 Procalcitonin 0.03 ng/mL (0-0.5) 04/26/22 14:33 TSH 0.46 uIU/mL (0.27-4.20) 04/26/22 14:33 Urine Color Straw (Yellow) 04/26/22 16:42 Urine Appearance Clear (CLEAR) 04/26/22 16:42 Urine pH 6.5 (5-7) 04/26/22 16:42 Ur Specific [place] 1.010 (1.005-1.030) 04/26/22 16:42 Urine Protein Neg (Negative) 04/26/22 16:42 Urine Glucose (UA) Norm (Normal) 04/26/22 16:42 Urine Ketones Negative (Negative) 04/26/22 16:42 Urine Blood Trace (Negative) H 04/26/22 16:42 Urine Nitrate Negative (Negative) 04/26/22 16:42 Urine Bilirubin Neg (Negative) 04/26/22 16:42 Urine Urobilinogen Norm mg/dL (Negative) 04/26/22 16:42 Ur Leukocyte Esterase Negative (Negative) 04/26/22 16:42 Urine RBC 0-4 /hpf (0-2) H 04/26/22 16:42 Urine WBC 0-4 /hpf (0-5) H 04/26/22 16:42 Ur Squamous Epith Cells 0-4 /hpf (0-5) H 04/26/22 16:42 Amorphous Sediment Not Reportable 04/26/22 16:42 Urine Bacteria Trace /hpf (NONE) 04/26/22 16:42 Urine Opiates Screen Positive ng/mL (Negative) H 04/26/22 16:42 Ur Barbiturates Screen Negative ng/mL (Negative) 04/26/22 16:42 Ur Phencyclidine Scrn Negative ng/mL (Negative) 04/26/22 16:42 Ur Amphetamines Screen Negative ng/mL (Negative) 04/26/22 16:42 U Benzodiazepines Scrn Negative ng/mL (Negative) 04/26/22 16:42 Urine Cocaine Screen Negative ng/mL (Negative) 04/26/22 16:42 U Marijuana (THC) Screen Positive ng/mL (Negative) H 04/26/22 16:42 Vitals Last Vital Signs Temp 98.1 F 04/27/22 07:28 Pulse 61 04/27/22 13:45 Resp 13 04/27/22 13:45 BP 109/62 04/27/22 13:45 Pulse Ox 95 04/27/22 13:45 O2 Del Method 04/27/22 08:00 Discharge Plan Discharge Patient Disposition: Home Condition: Stable Prescriptions: New losartan 50 mg Tablet 50 mg PO DAILY Qty: 30 0RF atorvastatin 40 mg Tablet 40 mg PO BEDTIME Qty: 30 0RF ferrous gluconate 324 mg (37.5 mg iron) Tablet 324 mg PO BIDWM Qty: 60 0RF aspirin 81 mg capsule 81 mg PO DAILY Qty: 30 0RF Discontinued aspirin 325 mg Tablet 325 mg PO QAM Pain Relief 845-65 mg Powder In Packet 2 ea PO DAILY PRN (Reason: Pain) Discharge Orders: Discharge Order (Routine); Ordered 04/27/22 Ordered By: Tank Ward Referrals: Eugenio Galloway M.D [Physician] - 1 month Trista Cesar FNP [Nurse Practitioner] - 4-7 days Rolando Luis DO [Physician] - 7-10 days Discharge Diet: Cardiac Discharge Activity: Resume usual activity and Increase activity as tolerated Patient Instructions: Iron Supplements (By mouth), Aspirin (By mouth), Losartan (By mouth), Atorvastatin (By mouth), Chest Pain (DC), How to Stop Smoking (ED), Cigarette Smoking and Your Health (GEN), Chest Pain Stoplight, Opioid Safety Activity Restrictions/Additional Instructions: Please continue taking medications as prescribed. Please follow-up with your primary care provider within next 1 week. If possibl e check your blood pressure daily at home and maintain a blood pressure diary. Please take aspirin 81 mg daily, atorvastatin 40 mg daily along with losartan 50 mg daily. Please make sure to follow-up with [facility]/Trista Cesar who is the nurse practitioner within next [address] Galloway within next 1 month. Please abstain from smoking and alcohol consumption as much as possible. Discharge Attestations Time Spent in Discharge Care*: greater than 30 min Specific Discharge Activities: educating patient, discussing with pcp/other providers, discussing with comp field case manager/social workers/dc planners, documenting/other paperwork and evaluating patient/reviewing data Status at Discharge: Cognitive status at discharge: cognitively intact , Behavioral status at discharge: cooperative , Functional status at discharge: independent ambulation , Overall status at discharge: patient is back to baseline Quality Metrics Clinical Quality Measures [ No reported AMI, CVA or VTE this stay] Coding Level of Care Code Acute Chg FW DC note Diagnoses Non-ST elevation MA (NSTEMI) I21.4 Hypertensive urgency I16.0 Smoker F17.200 HLD (hyperlipidemia) E78.5 HTN (hypertension) I10 Single vessel coronary artery disease I25.10
--- NOTE | 2022-04-27 16:35 | PC.NURSE ---
tr band slowly deflated and finally removed at 1535.no hematoma formation noted.right hand remains warm to touch and with brisk capillary refill.palpable radial pulse noted.pt instructed in activity restrictions s/p tr band removal..and instructed to notify staff for any bleeding,pain,bruising,numbness...or for any concerns at all.pt verb understanding of instructions.
--- NOTE | 2022-04-27 17:21 | PC.NURSE ---
discharge instructions given and explained.pt verb understanding of instructions.pt requests to wait for ride at main entrance.discharged at 1710 to main entrance
== END 2022-04-27 17:10 | disposition home or self-care (01) | DRG 282 ==
LOC: ER 16:04 → MEDSURG 21:35
PROVIDERS: Internal Medicine; Admitting Provider Student in an Organized Health Care Education/Training Program; Emergency Provider Family Medicine; Visit Provider Student in an Organized Health Care Education/Training Program
PROC: 4A023N7 Measurement of Cardiac Sampling and Pressure, Left Heart, Percutaneous Approach (ICD-10-PCS; principal; 2022-04-27 11:00)
DX: I21.4 Non-ST elevation (NSTEMI) myocardial infarction (principal); I25.10 Atherosclerotic heart disease of native coronary artery without angina pectoris; I10 Essential (primary) hypertension; E78.5 Hyperlipidemia, unspecified; F10.20 Alcohol dependence, uncomplicated; Z82.49 Family history of ischemic heart disease and other diseases of the circulatory system; Z82.3 Family history of stroke; G89.29 Other chronic pain; M54.9 Dorsalgia, unspecified; F17.210 Nicotine dependence, cigarettes, uncomplicated; I16.0 Hypertensive urgency; Z91.14 Patient's other noncompliance with medication regimen
CPT/HCPCS: 36415; 71045; 80053; 80061; 80306; 81001; 82607; 82746; 83036; 83540; 83550; 84145; 84443; 84484; 85025; 85378; 93005; 93306; 93458; 93571; 96360; 96361; 96372; 96374; 96375; 96376; 99152; 99153; 99291; C1769; C1887; C1894; J1644; J1650; J2250; J2270; J3010; J3490; J7030; Q9967

== ENCOUNTER 2024-03-07 15:42 | Emergency (ER) | payer SELFPAY ==
[2024-03-07 15:46] VITALS: BP 200/107; PULSE 90; RESP 16; TEMP 36.7; O2SAT 97
--- NOTE | 2024-03-07 16:04 | XRR_ITS ---
PROCEDURE INFORMATION: Exam: XR Left Hand Exam date and time: 03/07/2024 4:09 PM Age: 58 years old Clinical indication: Injury or trauma; Fall; Laceration; Hand; Left; Additional info: Fall, lac to base of 4th finger TECHNIQUE: Imaging protocol: Radiologic exam of the left hand. Views: 3 or more views. COMPARISON: No relevant prior studies available. FINDINGS: Bones/joints: Osseous structures are intact. Negative for fracture. Soft tissues: Punctate radiopaque foreign bodies seen at the laceration site at the base of the 4th digit. XR/XR hand LT min 3V* [id number] IMPRESSION: Punctate radiopaque foreign body seen at the laceration site at the base of the 4th digit.
--- NOTE | 2024-03-07 16:05 | W.ED.WOUNDLC ---
HPI - Wound/Laceration General: Chief Complaint: Wound/Laceration Stated Complaint: finger wound Time Seen by Provider: 03/07/24 15:53 Source: patient Mode of arrival: ambulatory Limitations: no limitations History of Present Illness: Patient is a 58-year-old male who presents to ED today for evaluation of a laceration to his left hand that he sustained yesterday after accidentally tripping and falling and cutting it on a rock. Last tetanus is unknown. 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 Onset (ago): day(s) (yesterday) Extremity Location: Left: hand Place: home Patient tetanus UTD: No Context: accidental Associated symptoms: Reports no associated symptoms Review of Systems Musc: Reports: extremity pain (L hand) Skin/Breast: Reports: other (laceration L 4th finger) Neuro: Denies: numbness in extremities, weakness in extremities or sensory changes [facility] ED PFSH: Medical History Smoker Smoking addiction Urine retention Sciatica HLD (hyperlipidemia) HTN (hypertension) IBS (irritable bowel syndrome) Chronic back pain Family History Other Alcoholism Social History Smoking and tobacco/nicotine status: current every day tobacco/nicotine user cigarettes Packs smoked per day: 0.5 Alcohol intake: current Alcohol intake frequency: 3 or more drinks per day Substance/Drug Use: current Substance/Drug use frequency: daily Physical Exam Const: COMMON NORMALS: no acute distress, patient oriented x3, no limitations, alert and well nourished GENERAL APPEARANCE: cooperative Extremity: COMMON NORMALS: full ROM and capillary refill normal GENERAL: Yes normal exam except as noted LEFT UPPER EXTREMITY: Yes hand & digits Hand Left Front: 1. laceration at palmar base of L 4th finger; patient can fully flex and extend digit-no obvious tendon injuries noted; wound appears old and contaminated and macerated; no redness, drainage, streaking; no obvious bony deformities noted Neuro: COMMON NORMALS: patient oriented x3, moves all extremities, no focal motor deficits and no sensory deficits noted SENSORIUM/ORIENTATION: Yes alert Skin: TRAUMA: laceration Course Vital Signs: Vital signs: Vital Signs Temperature 98.0 F 03/07/24 15:46 Pulse Rate 90 03/07/24 15:46 Respiratory Rate 16 03/07/24 15:46 Blood Pressure 200/107 03/07/24 15:46 Pulse Oximetry 97 03/07/24 15:46 MDM - Wound/Laceration Medical Decision Making Wound will be copiously irrigated and will need to heal by secondary intent. Will give IM Ancef and place on oral antibiotics. Will splint finger as some concern for avulsion fracture of fourth proximal phalanx. Will have him follow up with orthopedics. Return precautions given. Differential Diagnosis Likely laceration Medical Records I reviewed the patient's medical records. XR interpretation done by ED provider, pending radiology final review ED provider radiology interpretation(s): XR interpretation done by ED provider, pending radiology final review ED provider radiology interpretation(s): appears to have a small avulsion fracture off distal end of his fourth proximal phalanx Discharge Plan Discharge Patient Disposition: Home Clinical Impression: Laceration of left ring finger Qualifiers: Encounter type: initial encounter Damage to nail status: without damage Foreign body presence: without foreign body Qualified Code(s): S61.215A - Laceration without foreign body of left ring finger without damage to nail, initial encounter Closed fracture of proximal phalanx of left ring finger Qualifiers: Encounter type: initial encounter Fracture alignment: nondisplaced Qualified Code(s): S62.645A - Nondisplaced fracture of proximal phalanx of left ring finger, initial encounter for closed fracture Condition: Stable Prescriptions: New cephalexin 500 mg capsule 500 mg PO Q6H 7 Days Qty: 28 0RF No Action losartan 50 mg Tablet 50 mg PO DAILY Qty: 30 0RF atorvastatin 40 mg Tablet 40 mg PO BEDTIME Qty: 30 0RF ferrous gluconate 324 mg (37.5 mg iron) Tablet 324 mg PO BIDWM Qty: 60 0RF aspirin 81 mg capsule 81 mg PO DAILY Qty: 30 0RF Discharge Orders: Discharge ED (Routine); Ordered 03/07/24 Ordered By: Yolande Morgan Patient Instructions: Finger Laceration (ED) Activity Restrictions/Additional Instructions: As we discussed please fill your antibiotics and start them immediately. Monitor for signs of infection such as redness, swelling, streaking up your hand or arm, fevers, purulent drainage, or any other concerns you may have. Please seek medical reevaluation if these occur. We will have you follow-up with orthopedics. Coding Level of Care Code ED Gas Line Repairer for Dave Mcrae
[2024-03-07] MEDS: tetanus-dipt-pertussis 0.5 mL SDV IM (16:46)
[2024-03-07] MEDS: ceFAZolin 1,000 MG in water for injection-sterile 2.5 ML 2.5 MG IM (16:50)
[2024-03-07 16:56] VITALS: PULSE 71; O2SAT 97
--- NOTE | 2024-03-07 18:33 | DCPLANNER ---
messaged ortho for er f/u
== END 2024-03-07 16:59 | disposition home or self-care (01) ==
PROVIDERS: Emergency Provider Physician Assistant
DX: S62.645A Nondisplaced fracture of proximal phalanx of left ring finger, initial encounter for closed fracture (principal); S61.215A Laceration without foreign body of left ring finger without damage to nail, initial encounter; Z79.82 Long term (current) use of aspirin; E78.5 Hyperlipidemia, unspecified; I10 Essential (primary) hypertension; F17.210 Nicotine dependence, cigarettes, uncomplicated; W01.198A Fall on same level from slipping, tripping and stumbling with subsequent striking against other object, initial encounter; Z23 Encounter for immunization
CPT/HCPCS: 73130; 90471; 90715; 96372; 99284; J0690

== ENCOUNTER 2025-02-27 11:09 | Emergency (ER) | payer BC, MEDICAID, SELFPAY ==
[2025-02-27 11:11] VITALS: BP 165/85; PULSE 91; RESP 16; TEMP 36.9; O2SAT 95; BMI 25.0
--- NOTE | 2025-02-27 11:20 | ECG_ITS ---
[employer] Test Date: 2025-02-27 Pat Name: Mynor Condon Department: Room: Gender: Male Full Stack Developer: : 1965 Requested By: Latosha Monaco Order Number: [id number] Reading MD: Measurements Intervals [place] Rate: 89 P: 66 SC: 143 QRS: -57 QRSD: 108 T: 67 QT: 330 QTc: 402 Interpretive Statements SINUS RHYTHM INCOMPLETE RIGHT BUNDLE BRANCH BLOCK [90+ ms QRS DURATION, TERMINAL R IN V1/V2, 40+ ms S IN I/aVL/V4/V5/V6] LEFT ANTERIOR FASCICULAR BLOCK [QRS AXIS <= -45, QR IN I, RS IN II] [email or web address]
--- NOTE | 2025-02-27 11:20 | CT_ITS ---
WS: [id number] CT HEAD NONCONTRAST HISTORY: tingling TECHNIQUE: Contiguous axial imaging performed through the brain. Bone and soft tissue windows. Sagittal and coronal reformats reviewed. All CT scans at [facility] use at least one of these dose optimization techniques: automated exposure control; mA and/or kV adjustment per patient size (includes targeted exams where dose is matched to clinical indication); or iterative reconstruction. DLP: 1043.50 mGy.cm COMPARISON: 09/23/2019 No acute intracranial hemorrhage, midline shift or mass effect. Mild atrophy and small vessel disease. No prior infarct. Ventricles: Normal size with no hydrocephalus. Paranasal sinuses: As visualized are clear. Mastoid air cells: Well pneumatized. Calvarium and scalp: Skull is intact with no soft tissue edema or swelling. CT/CT head wo con* [id number] IMPRESSION: 1. No acute intracranial hemorrhage or edema. 2. Mild cerebral atrophy and small vessel disease.
--- OUTSIDE RECORDS SUMMARY | 2025-02-27 11:20 | XMS_ITS | Clinical Summary ---
Author Organization [facility] Address [address] [place] [address] Care Team Providers Care Financial Manager Name Role Phone Jimmy Cruz MD Primary Care Provider Unava ilable Allergies Active Allergy Reactions Criticality Noted Date Comments Tramadol Nausea and Vomiting Low 06/16/2009 Medications RANITIDINE HCL 150 mg Oral Tab Take 150 mg by mouth 1 time daily as needed. Active ibuprofen (MOTRIN) 800 mg Oral tablet Take 1 Tab by mouth every 6 hours as needed for Pain. 30 Tab 0 08/27/2009 Active Active Problems Problem Noted Date Diagnosed Date Arthritis of knee 07/21/2009 LBP radiating to left leg 07/05/2009 Hip Pain. 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 Gender Identity Not on file Sexual Orientation Not on file Last Filed Vital Signs Vital Sign Reading Time Taken Comments Blood Pressure 128/89 07/05/2009 1:04 PM METER READERS SUPERVISOR Pulse 90 07/05/2009 1:04 PM METER READERS SUPERVISOR Temperature 36 C (96.8 F) 07/05/2009 1:04 PM METER READERS SUPERVISOR Respiratory Rate 20 07/05/2009 1:04 PM METER READERS SUPERVISOR Oxygen Saturation 98% 07/05/2009 1:04 PM METER READERS SUPERVISOR Inhaled Oxygen Concentration - - Weight 93 kg (205 lb) 07/05/2009 1:04 PM METER READERS SUPERVISOR Height 181.6 cm (5' 11.5 ) 07/05/2009 1:04 PM CS T Body Mass Index 28.19 07/05/2009 1:04 PM METER READERS 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 Plan of Treatment Health Maintenance Due Date Last Done Comments DTAP/TDAP/TD VACCINES (1 - Tdap) 1983 COLORECTAL SCREENING 2009 Colorectal Cancer Screening 2009 FIT-DNA Q 3 years 2009 FIT/FOBT Q 1 year 2009 Flex Sig/CT Colonography Q 5 years 2009 ZOSTER VACCINE (1 of 2) 2014 INFLUENZA VACCINE (#1) 2025 RSV VACCINE (60+ or ) (1 - 1-dose 75+ series) 2039 HEPATITIS B VACCINES Aged Out No long er eligible based on patient's age to complete this topic Insurance MEDICAID [place] Advance Directives For more information, please contact: [phone] * Full Code (Latest Code Status on File) Date Activated Date Inactivated Comments 08/18/2008 1:30 PM 08/19/2008 2:01 AM Care Teams Financial Manager Relationship Specialty Start Date End Date Jimmy Cruz MD PCP - General 08/17/08
--- OUTSIDE RECORDS SUMMARY | 2025-02-27 11:20 | XMS_ITS | Clinical Summary ---
Author Organization [facility] Address [address] [facility] Attn: Epic Prelude ADT [place] [address] Care Team Providers Care Big Data Lead Name Role Phone Jimmy Cruz MD Primary Care Provider Unava ilable Allergies Active Allergy Reactions Criticality Noted Date Comments Tramadol Nausea and Vomiting Low 06/16/2009 Active Problems Problem Noted Date Diagnosed Date Arthritis of knee 07/21/2009 LBP radiating to left leg 07/05/2009 Hip Pain. 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
--- OUTSIDE RECORDS SUMMARY | 2025-02-27 11:20 | XMS_ITS | Encounter Summary ---
Author Organization [facility] Address [address] [place] [address] Care Team Providers Care Matcher Operator Name Role Phone Jimmy Cruz MD Primary Care Provider Unava ilable Encounter Details Date Type Department Care Team (Latest Contact Info) Description 04/13/2008 Outpatient Historical [facility] [address] [place] [phone] Kostas Zamudio MD NO ADDRESS ON FILE Edema; Disorder of Bone and Cartilage, Unspecified; Tear of Lateral Cartilage or Meniscus of Knee, Current; Personal History of Tobacco Use, Presenting Hazards to Health; Unspecified Accident; Unspecified Place of Occurrence Social History Tobacco Use Types Packs/Day Years Used Date Smoking Tobacco: Never Assessed Sex and Gender Information Value Date Recorded Sex Assigned at Not on file 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 The ACL and the PCL are intact. The ACL is mildly thickened and edematous and this may reflect a subacute strain. The quadriceps tendon and the patellar tendon are intact. The medial collateral ligament, iliotibial tract, fibulocollateral ligament and biceps femoris are intact. It does appear there is some very mild edema in the superficial aspect of the patella. There is poor fat saturation in this region and this may simply be artifactual or may reflect a mild superficial bony contusion. There is some cartilage loss of the far posterior aspect the lateral femur. Prominent bony subchondral edema and mild sclerosis is identified and best seen on series 5 and series 4 image 19 and 20 and series 3 image 11. There is some mild cartilage thinning in the patellofemoral joint but no focal osteochondral lesion is identified. There is some mild edema in the medial femur and tibia. It appears there may be subacute very mild bony contusions. There is some mild increased signal in the adjacent periphery of the medial meniscus but no distinct linear medial meniscal tear is identified. There is some mild fraying of the inner margin of the lateral meniscus and it does appear there is a very short segment thin linear tear of the undersurface of the posterior horn lateral meniscus as seen on series 5 image 21 and series 6 image 18. A trace amount of fluid signal appears to extend into the lateral meniscal tissue as seen on series 7 images 17 through 19. Impression: 1. Subtle edema in the medial femur and tibia. The appearance suggests subacute mild bony contusions. 2. 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 Thin linear nondisplaced tear of the undersurface of the lateral meniscus is identified. Please see above. - Dictated By: Susanne Pabon M.D. Electronically Signed By: Susanne Pabon M.D. Date Signed: 04/14/08 SDM Procedure Note Susanne Pabon - 04/14/2008 MRI of the left knee was performed without contrast. The ACL and the PCL are intact. The ACL is mildly thickened and edematousand this may reflect a subacute strain. The quadriceps tendon and the patellar tendon are intact. Themedial collateral ligament, iliotibial tract, fibulocollateral ligament and biceps femoris are intact.It does appear there is some very mild edema in the superficial aspect of the patella. There is poorfat saturation in this region and this may simply be artifactual or may reflect a mild superficial bonycontusion. There is some cartilage loss of the far posterior aspect the lateral femur. Prominent bonysubchondral edema and mild sclerosis is identified and best seen on series 5 and series 4 image 19 and 20 andseries 3 image 11. There is some mild cartilage thinning in the patellofemoral joint but no focalosteochondral lesion is identified. There is some mild edema in the medial femur and tibia. It appears theremay be subacute very mild bony contusions. There is some mild increased signal in the adjacent peripheryof the medial meniscus but no distinct linear medial meniscal tear is identified. There is some mildfraying of the inner margin of the lateral meniscus and it does appear there is a very short segment thinlinear tear of the undersurface of the posterior horn lateral meniscus as seen on series 5 image 21 andseries 6 image 18. A trace amount of fluid signal appears to extend into the lateral meniscal tissue asseen on series 7 images 17 through 19. Impression: 1. Subtle edema in the medial femur and tibia. The appearance suggestssubacute mild bony contusions. 2. Chondromalacia of the far posterior aspect of the lateral femoralcondyle. Thin linear nondisplaced tear of the undersurface of the lateral meniscus is identified. Please seeabove. - Dictated By: Susanne Pabon M.D. Electronically Signed By: Susanne Pabon M.D. Date Signed: 04/14/08 SDM Kostas Zamudio MD MR ORDERABLES Final Result documented in this encounter Visit Diagnoses Diagnosis Edema Disorder of bone and cartilage, unspecified Tear of lateral cartilage or meniscus of knee, current Personal history of tobacco use, presenting hazards to health Unspecified accident Unspecified place of occurrence documented in this encounter Care Teams Matcher Operator Relationship Specialty Start Date End Date Jimmy Cruz MD PCP - General 08/17/08 documented as of this encounter
--- OUTSIDE RECORDS SUMMARY | 2025-02-27 11:20 | XMS_ITS | Encounter Summary ---
Author Organization [facility] Address [address] [facility] [place] [address] Care Team Providers Care Bottle House Quality Control Technician Name Role Phone Jimmy Cruz MD Primary Care Provider Unava ilable Encounter Details Date Type Department Care Team (Late st Contact Info) Description 10/09/2008 Ancillary Orders [facility] 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 No other significant disc changes or sites of neural impingement are identified. Narrative 11/06/2008 9:10 AM CDT The lumbar spine is normal in sagittal alignment. The conus medullaris and cauda equina appear normal. No intradural disease is present. STIR images show no sites of abnormal signal throughout the lumbar spine. The paraspinal tissues are unremarkable. L1-L2: Normal. L2-L3: Normal. L3-L4: Normal. L4-L5: A mild diffuse bulge of the disc is present. Annular tears are present in the foraminal zones. L5-S1: Unremarkable. Procedure Note Seth Wolff MD - 11/06/2008 The lumbar spine is normal in sagittal alignment. The conus medullaris andcauda equina appear normal. No intradural disease is present. STIR images show no sites of abnormalsignal throughout the lumbar spine. The paraspinal tissues are unremarkable. L1-L2: Normal. L2-L3: Normal. L3-L4: Normal. L4-L5: A mild diffuse bulge of the disc is present. Annular tears arepresent in the foraminal zones. L5-S1: Unremarkable. IMPRESSION Impression: Small annular tears are probably present at L4-L5. No othersignificant disc changes or sites of neural impingement are identified. Riley Cabezas MD MR ORDERABLES Final R esult documented in this encounter Visit Diagnoses Diagnosis Left leg pain Pain in limb Tingling Disturbance of skin sensation Left leg pain Pain in limb Tingling Disturbance of skin sensation documented in this encounter Care Teams Bottle House Quality Control Technician Relationship Specialty Start Date End Date Jimmy Cruz MD PCP - General 08/17/08 documented as of this encounter
--- OUTSIDE RECORDS SUMMARY | 2025-02-27 11:20 | XMS_ITS | Encounter Summary ---
Author Organization [facility] Address [address] [place] [address] Care Team Providers Care Delivery Architect Name Role Phone Jimmy Cruz MD Primary Care Provider Unava ilable Encounter Details Date Type Department Care Team (Late st Contact Info) Description 04/03/2008 Emergency [facility] [address] [place] [phone] Ed, Physician NO ADDRESS ON FILE Kostas Zamudio MD NO ADDRESS ON FILE Unspecified Internal Derangement of Knee; Tobacco Use Disorder Social History Tobacco Use Types Packs/Day Years Used Date Smoking Tobacco: Never Assessed Sex and Gender Information Value Date Recorded Sex Assigned at Not on file 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 Findings: Bones and joint spaces are intact. No fracture or dislocation evident. No effusion seen. Impression: Negative. - Dictated By: Tito Sykes M.D. Electronically Signed By: Tito Sykes M.D. Date Signed: 04/03/08 Procedure Note Tito Sykes - 04/03/2008 Exam: Knee - Left Date/Time of Exam: Apr 03, 2008 5:23:45 PM History: Pain. Findings: Bones and joint spaces are intact. No fracture or dislocationevident. No effusion seen. Impression: Negative. - Dictated By: Tito Sykes M.D. Electronically Signed By: Tito Sykes M.D. Date Signed: 04/03/08 Amy Cardoza MD DIAGNOSTIC IMAGING ORDERABLES Final Result documented in this encounter Visit Diagnoses Diagnosis Unspecified internal derangement of knee Tobacco use disorder documented in this encounter Care Teams Delivery Architect Relationship Specialty Start Date End Date Jimmy Cruz MD PCP - General 08/17/08 documented as of this encounter
--- OUTSIDE RECORDS SUMMARY | 2025-02-27 11:20 | XMS_ITS | Patient Health Record ---
Author Organization [facility] Address [address] [place] [address] Care Team Providers Care Supervisory Aide Name Role Phone Pacheco Graeme Primary Care Provider Allergies Allergen (clinical drug ingredient) Drug/Non Drug Allergy documented on EMR Reaction Allergy Type Onset Date Status tramadol Tramadol Unknown Drug Allergy Active Reason For Referral No Information Medications Medication SIG (Take, Route, Frequency, Duration) Notes Start Date End Date Status Losartan Potassium 50 MG Tablet 1 tablet Orally Once a day Not-Taking Ferrous Gluconate 324 (38 Fe) MG Tablet 1 tablet with water or juice between meals Orally Once a day Not-Taking Atorvastatin Calcium 40 MG Tablet 1 tablet Orally Once a day Not-Taking Aspirin 81 81 MG Tablet Delayed Release 1 tablet Orally Once a day Active Mupirocin 2 % Ointment 1 application Externally Twice a day; Duration: 5 days Active Social History Tobacco Use: Social History Observation Description Date Details (start date - stop date) Current Smoker NA - NA Social History Drugs/Alcohol: Social Info Question Answer Notes Alcohol Screen (Audit-C) Did you have a drink containing alcohol in the past year? Yes How often did you have a drink containing alcohol in the past year? 4 or more times a week (4 points) How many drinks did you have on a typical day when you were drinking in the past year? 1 or 2 drinks (0 point) How often did you have 6 or more drinks on one occasion in the past year? Daily or almost daily (4 points) Points 8 Interpretation Positive Drugs Have you used drugs other than those for medical reasons in the past 12 months? Yes Tobacco Use: Social Info Question Answer Notes xTobacco Use/Smoking Are you a current smoker How often do you smoke cigarettes? every day How many cigarettes a day do you smoke? 11-20 How soon after you wake up do you smoke your first cigarette? within 5 minutes Are you interested in quitting? Not ready to quit Plan Of Treatment No Information Medical (General) History Medical History History ICD Code cad hypertension chest pain NSTEMI repiratory acidosis encephalopathy Chronic Back pain hyperlipidemia IBS Sciatica
--- OUTSIDE RECORDS SUMMARY | 2025-02-27 11:20 | XMS_ITS | Patient Health Record ---
Author Organization [facility] Address [address] [place], [place] [id number] Care Team Providers Care Haircutter Name Role Phone Kai Mistry Primary Care Provider Skylar Gibbons MD, [place] Unavailable [phone] Allergies Allergen (clinical drug ingredient) Drug/Non Drug Allergy documented on EMR Reaction Allergy Type Onset Date Status tramadol Ultram (uncoded) nausea Allergy Act glendy Reason For Referral No Information Medications Medication SIG (Take, Route, Fr equency, Duration) Notes Start Date End Date Status midazolam 1 mg/ml 1-2 mg intravenous m ay repeat PRN for procedural anxiety 03/29/2009 Active fentanyl 50 mcg/ml 1-2 ml intravenous m ay repeat PRN for procedural anxiety/ pain 03/29/2009 Active indomethacin 50 mg 1 cap(s) orally 3 ti mes a day for 14 day(s) Active alfentanil 500 mcg/ml 1-2 ml intravenous may repeat PRN for procedural anxiety/ pain 03/29/2009 Active Plan Of Treatment No Information Insurance Providers Payer Name Payer Address Payer Phone Subscriber Number Group Number Insured Name Patient Relationship to Insured Coverage Start Date Coverage End Date [place] [employer] [address] [place] [address] [phone] [id number] Mynor Condon Self - patient is the insured Medical (General) History Medical History History ICD Code Chronic pain syndrome Sciatica Surgical History Surgery Date(Month/Year) Left knee x 2 1986, 2008 Right arm 1990 Left ear cyst removed x 2 Hospitalization History Reason Date(Month/Year)
--- NOTE | 2025-02-27 11:25 | XR_ITS ---
WS: [id number] Portable AP upright chest, 02/27/2025 Clinical Data: Weakness Comparison: Portable chest, 04/26/2022. Findings: No nodules, masses or effusions are seen. The heart is normal. The pulmonary vascularity is not increased. No pneumonia or pneumothorax is seen. Monitor leads are on the chest wall. XR/XR chest 1V portable [id number] Impression: Negative chest.
[2025-02-27 11:36] LABS: Glucose Urine UA Negative (Normal); Nitrate Urine Negative (Negative); Specific Gravity, Urine 1.008 (1.005-1.030)
--- NOTE | 2025-02-27 11:46 | W.ED.SYNCOPE ---
HPI - Syncope General: Chief Complaint: Syncope Stated Complaint: TINGLING UPPER BODY Time Seen by Provider: 02/27/25 11:16 History of Present Illness: 59-year-old man with a history of hypertension, tobacco dependence, chronic back pain and hyperlipidemia who presents to the emergency room after he had a syncopal episode yesterday. [place] and he had passed out for a couple of minutes while leaning on his truck. A friend witnessed this. Today he says he feels like his body all the way from his waist up through his chest and into his arms and including his forehead or all tingling. No focal motor deficits. No altered mental status. No chest pain. No abdominal pain. No vomiting. Related Data Previous Rx's ?Medication ?Instructions ?Recorded aspirin 81 mg capsule 81 mg PO DAILY #30 caps 04/27/22 atorvastatin 40 mg tablet 40 mg PO BEDTIME #30 tabs 04/27/22 ferrous gluconate 324 mg (37.5 mg 324 mg PO BIDWM #60 tabs 04/27/22 iron) tablet losartan 50 mg tablet 50 mg PO DAILY #30 tabs 04/27/22 Allergies Allergy/AdvReac Type Severity Reaction Status Date / Time tramadol (From [facility]) Allergy Unknown Verified 02/27/25 11:23 Review of Systems Narrative: Constitutional symptoms: Negative except as documented in HPI. Skin symptoms: Negative except as documented in HPI. Eye symptoms: Negative except as documented in HPI. ENMT symptoms: Negative except as documented in HPI. Respiratory symptoms: Negative except as documented in HPI. Cardiovascular symptoms: Negative except as documented in HPI. Gastrointestinal symptoms: Negative except as documented in HPI. Genitourinary symptoms: Negative except as documented in HPI. Musculoskeletal symptoms: Negative except as documented in HPI. Neurologic symptoms: Negative except as documented in HPI. Psychiatric symptoms: Negative except as documented in HPI. Endocrine symptoms: Negative except as documented in HPI. PFS ED PFSH: Medical History (Updated 02/27/25 @ 12:44 by Latosha Weiss MD) Smoker Smoking addiction Urine retention Sciatica HLD (hyperlipidemia) HTN (hypertension) IBS (irritable bowel syndrome) Chronic back pain Family History Other Alcoholism Social History Smoking and tobacco/nicotine status: current every day tobacco/nicotine user cigarettes Packs smoked per day: 0.5 Alcohol intake: current Alcohol intake frequency: 3 or more drinks per day Substance/Drug Use: current Substance/Drug use frequency: daily Physical Exam Narrative: EXAM NARRATIVE: General: Alert, no acute distress. Skin: Warm, dry. Head: Normocephalic, atraumatic. Neck: Supple, trachea midline. Eye: Extraocular movements are intact. Ears, nose, mouth and throat: mucosa moist. Cardiovascular: Regular, Normal peripheral perfusion. Respiratory: Lungs are clear to auscultation, respirations are non-labored, breath sounds are equal, Symmetrical chest wall expansion. Gastrointestinal: Soft, Nontender, Non distended Musculoskeletal: Normal ROM, no deformity. Neurological: Alert and oriented, No focal neurological deficit observed. Psychiatric: Cooperative, appropriate mood & affect. Course Vital Signs: Vital signs: Vital Signs Temperature 98.5 F 02/27/25 11:11 Pulse Rate 82 02/27/25 12:01 Respiratory Rate 20 H 02/27/25 12:01 Blood Pressure 155/85 02/27/25 12:01 Pulse Oximetry 97 02/27/25 12:01 Oxygen Delivery Me thod Room Air 02/27/25 12:01 MDM - Syncope Medical Decision Making Medical decision making: Differential diagnosis including but not limited to and based on the above HPI, review of systems and physical exam in this patient with syncope: Vasovagal, orthostatics hypotension, cardiac dysrhythmia, myocardial infarction, infection and hypotension, Orders placed to evaluate differential diagnosis based on the above differential, HPI and physical exam EKG: Time 1128. Rate 89. Normal sinus rhythm, No ST-T changes, no ectopy, incomplete right bundle branch block, left anterior fascicular block, This was reviewed and interpreted by myself the ER physician at 1132 Chest x-ray: No acute process. No infiltrate. No pneumothorax. This was reviewed and interpreted by myself the emergency room physician. I also reviewed the radiology report. CT head: No acute intracranial process. no intracranial hemorrhage, no evidence of infarct. no evidence of acute fracture.This was reviewed and interpreted by myself the ER physician. Lab Review: Laboratory results were reviewed and interpreted by myself the emergency room physician. No leukocytosis. No anemia. No renal failure. Troponin is negative. Event was yesterday. I reviewed the patient's medical record. Reexamination: Patient remained stable. No increased work of breathing. No altered mental status. No focal motor deficits. No dysrhythmias on cardiac monitoring throughout his stay. Assessment and plan: Syncope - Discharged home - Discussed plan with patient. Answered any questions. - Evaluation and treatment of this problem were appropriate in the emergency setting. Lab Data 02/27/25 11:28 02/27/25 11:[address] 02/27/25 11:20 IMPRESSION: 1. No acute intracranial hemorrhage or edema. 2. Mild cerebral atrophy and small vessel disease. Chest X-Ray 02/27/25 11:25 Impression: Negative chest. Laboratory Results WBC 5.84 10^3/uL (3.29-11.43) 02/27/25 11:28 RBC 4.69 10^6/uL (3.85-5.65) 02/27/25 11:28 Hgb 15.50 g/dL (11.27-16.99) 02/27/25 11:28 Hct 44.7 % (37-53) 02/27/25 11:28 MCV 95.3 fl (82-101) 02/27/25 11:28 MCH 33.0 pg (27-33) 02/27/25 11:28 MCHC 34.7 g/dL (30-55) 02/27/25 11:28 RDW 13.3 % (12.1-15.1) 02/27/25 11:28 Plt Count 144 10^3/cmm (157-399) L 02/27/25 11:28 MPV 9.9 fL (7.4-10.4) 02/27/25 11:28 Neut % (Auto) 87.5 % 02/27/25 11:28 Lymph % (Auto) 6.8 % 02/27/25 11:28 [place] % (Auto) 5.0 % 02/27/25 11:28 Eos % (Auto) 0.2 % 02/27/25 11:28 Baso % (Auto) 0.3 % 02/27/25 11:28 Neut # (Auto) 5.11 10^3/uL (1.8-7.7) 02/27/25 11:28 Lymph # (Auto) 0.4 10^3/uL (0.8-4.8) L 02/27/25 11:28 [place] # (Auto) 0.3 10^3/uL (0.2-0.9) 02/27/25 11:28 Eos # (Auto) 0.0 10^3/uL (0.0-0.8) 02/27/25 11:28 Baso # (Auto) 0.0 10^3/uL (0.0-0.1) 02/27/25 11:28 Nucleated RBC % (auto) 0 % 02/27/25 11:28 Nucleated RBCs # 0.0 /100WBC 02/27/25 11:28 Sodium 130 mmol/L (136-145) L 02/27/25 11:28 Potassium 3.7 mmol/L (3.5-5.1) 02/27/25 11:28 Chloride 94 mmol/L (98-107) L 02/27/25 11:28 Carbon Dioxide 23 mmol/L (22-29) 02/27/25 11:28 Anion Gap 16.7 (5-19) 02/27/25 11:28 BUN 7 mg/dL (8-23) L 02/27/25 11:28 Creatinine 0.8 mg/dL (0.7-1.2) 02/27/25 11:28 GFR Calculation 98.6 mL/min (90-130) 02/27/25 11:28 Glucose 105 mg/dL (65-115) 02/27/25 11:28 Calculated Osmolality 268 mOsm/kg (285-295) L 02/27/25 11:28 Lactic Acid 1.1 mmol/L (0.5-2.2) 02/27/25 11:28 Calcium 9.3 mg/dL (8.5-10.5) 02/27/25 11:28 Total Bilirubin 0.8 mg/dL (0.15-1.2) 02/27/25 11:28 AST 17 U/L (0-40) 02/27/25 11:28 ALT 19 U/L (0-41) 02/27/25 11:28 Alkaline Phosphatase 81 U/L (40-130) 02/27/25 11:28 Troponin T Baseline 7 ng/L (0-15) 02/27/25 11:28 NT-Pro-B Natriuret Pep 913 pg/mL (0-125) H 02/27/25 11:28 Total Protein 7.3 g/dL (6.6-8.7) 02/27/25 11: Albumin 4.2 g/dL (3.5-5.2) 02/27/25 11: Globulin 3.1 g/dL (1.3-4.6) 02/27/25 11:28 Urine Color [place] (Yellow) A 02/27/25 11:29 Urine Appearance Clear (CLEAR) 02/27/25 11:29 Urine pH 7.5 (5-7) 02/27/25 11:29 Ur Specific [place] 1.008 (1.005-1.030) 02/27/25 11:29 Urine Protein Negative (Negative) 02/27/25 11:29 Urine Glucose (UA) Negative (Normal) 02/27/25 11:29 Urine Ketones Negative (Negative) 02/27/25 11:29 Urine Blood 2+ (Negative) A 02/27/25 11:29 Urine Nitrate Negative (Negative) 02/27/25 11:29 Urine Bilirubin Negative (Negative) 02/27/25 11:29 Urine Urobilinogen 0.2 mg/dL (Negative) 02/27/25 11:29 Ur Leukocyte Esterase Negative (Negative) 02/27/25 11:29 Urine RBC 11-20 /hpf (0-2) H 02/27/25 11:29 Urine WBC 0-5 /hpf (0-5) 02/27/25 11:29 Ur Squamous Epith Cells 0-5 /hpf (0-5) 02/27/25 11:29 Amorphous Sediment Not Reportable 02/27/25 11:29 Urine Bacteria None seen /hpf (NONE) 02/27/25 11:29 Hyaline Casts 0.40 /lpf 02/27/25 11:29 Urine Opiates Screen Negative ng/mL (Negative) 02/27/25 11:29 Ur Barbiturates Screen Negative ng/mL (Negative) 02/27/25 11:29 Ur Phencyclidine Scrn Negative ng/mL (Negative) 02/27/25 11:29 Ur Amphetamines Screen Negative ng/mL (Negative) 02/27/25 11:29 U Benzodiazepines Scrn Negative ng/mL (Negative) 02/27/25 11:29 Urine Cocaine Screen Negative ng/mL (Negative) 02/27/25 11:29 U Marijuana (THC) Screen Positive ng/mL (Negative) H 02/27/25 11:29 All radiology interpretation(s) finalized by discharge Discharge Plan Discharge Patient Disposition: Home Clinical Impression: Syncope Condition: Stable Prescriptions: No Action losartan 50 mg Tablet 50 mg PO DAILY Qty: 30 0RF atorvastatin 40 mg Tablet 40 mg PO BEDTIME Qty: 30 0RF ferrous gluconate 324 mg (37.5 mg iron) Tablet 324 mg PO BIDWM Qty: 60 0RF aspirin 81 mg capsule 81 mg PO DAILY Qty: 30 0RF Discharge Orders: Discharge ED (Routine); Ordered 02/27/25 Ordered By: Latosha Weiss Discharge Diet: Usual diet Discharge Activity: Increase activity as tolerated Patient Instructions: Syncope (ED), Opioid Safety, Pain Management, Patient Portal & Celia Instructions Activity Restrictions/Additional Instructions: Thank you for choosing [facility] [place] for your healthcare needs today. You have been screened and evaluated and felt safe for discharge. Health conditions do change or evolve sometimes and as such it is important that you follow up with your Primary Doctor to be re checked, 3-5 days is a general good time frame for follow up. You are always welcome to return to the ED for re assessment if your symptoms are worsening or you have new concerns Print Language: Senegalese Coding Level of Care Code ED Tying In Machine Operator for Dave Mcrae
[2025-02-27 11:52] LABS: Lactic Sepsis W/Reflex 1.1 mmol/L (0.5-2.2)
[2025-02-27 12:01] VITALS: BP 155/85; PULSE 82; RESP 20; O2SAT 97
[2025-02-27 12:03] LABS: Alanine Aminotransferase 19 U/L (0-41); Albumin Level 4.2 g/dL (3.5-5.2); Alkaline Phosphatase 81 U/L (40-130); Anion Gap 16.7 (5-19); Aspartate Amino Transferase 17 U/L (0-40); Blood Urea Nitrogen 7 mg/dL (8-23); Calcium 9.3 mg/dL (8.5-10.5); Carbon Dioxide 23 mmol/L (22-29); Chloride 94 mmol/L (98-107); Creatinine Clr Calc Pharmacy 111.2861; Globulin 3.1 g/dL (1.3-4.6); Glucose 105 mg/dL (65-115); NT Pro B Type Natriuretic Pept 913 pg/mL (0-125); Osmolality Calculated 268 mOsm/kg (285-295); Potassium 3.7 mmol/L (3.5-5.1); Sodium 130 mmol/L (136-145); Total Protein 7.3 g/dL (6.6-8.7)
[2025-02-27 12:06] LABS: PCP Screen Urine Negative (Negative)
[2025-02-27 12:21] LABS: Troponin(5th) Baseline 7 ng/L (0-15)
[2025-02-27 12:41] LABS: Hematocrit 44.7 % (37-53); Hemoglobin 15.50 g/dL (11.27-16.99); Mean Corpuscular HGB Conc 34.7 g/dL (30-55); Mean Corpuscular Hemoglobin 33.0 pg (27-33); Mean Corpuscular Volume 95.3 fl (82-101); Nucleated Red Blood Cells % 0 %; Platelet Count 144 10^3/cmm (157-399); Red Blood Count 4.69 10^6/uL (3.85-5.65); White Blood Count 5.84 10^3/uL (3.29-11.43)
[2025-02-27 12:54] VITALS: BP 135/83; PULSE 86; O2SAT 95
== END 2025-02-27 12:55 | disposition home or self-care (01) ==
PROVIDERS: Emergency Provider Emergency Medicine
DX: R55 Syncope and collapse (principal); Z79.82 Long term (current) use of aspirin; F17.210 Nicotine dependence, cigarettes, uncomplicated; E78.5 Hyperlipidemia, unspecified; I10 Essential (primary) hypertension
CPT/HCPCS: 36415; 70450; 71045; 80053; 80306; 81001; 83605; 83880; 84484; 85025; 87086; 93005; 99285